=== PATIENT | female | born 1975 | race Caucasian/White ===

== ENCOUNTER 2017-11-30 16:09 | Inpatient (IN) ==
[2017-11-30 17:09] LABS: Basophils # 0.1 K/mcL (0.0-0.2); Basophils % 0.5 %; Eosinophils # 0.4 K/mcL (0.0-0.6); Eosinophils % 4.2 %; Hematocrit 31.5 % (35.3-44.9); Hemoglobin 8.9 g/dL (11.5-15.4); Immature Granulocytes % 0.7 % (0-4); Lymphocytes # 2.2 K/mcL (0.6-4.6); Mean Corpuscular HGB Conc 28.3 g/dL (31.6-35.5); Mean Corpuscular Volume 74.3 fL (83.0-100.0); Mean Platelet Volume 8.4 fL (9.4-12.4); Monocytes # 0.3 K/mcL (0.0-1.3); Monocytes % 3.1 %; Neutrophils # 6.6 K/mcL (1.6-8.9); Platelet Count 330 K/mcL (140-400); Red Blood Count 4.24 M/mcL (3.82-4.97); Red Cell Distribution Width 20.3 % (11.5-14.5); Segmented Neutrophils % 68.5 %
[2017-11-30 17:24] LABS: Anisocytosis 2+ (Not Present); Hypochromasia Present (Not Present); Large Platelets Present (Not Present); Microcytosis Present (Not Present); Platelet Estimate Normal (Normal)
[2017-11-30 17:31] LABS: BUN/Creatinine Ratio 12 (6-26); Blood Urea Nitrogen 8 mg/dL (6-20); Calcium 9.7 mg/dL (8.6-10.3); Carbon Dioxide 26 mEq/L (23-29); Chloride 103 mEq/L (98-107); Glucose 205 mg/dL (70-105); Osmolality,Calculated 294 (280-300); Potassium 3.9 mEq/L (3.5-5.1); Sodium 140 mEq/L (136-145); eGFR For Non-African Americans > 60 (> 60)
[2017-11-30 17:32] LABS: Troponin I < 0.03 ng/mL (< 0.04)
--- NOTE | 2017-11-30 17:40 | Emergency Department Note ---
Disposition Clinical Impression: Hypoxia, Elevated lactic acid level Anemia Qualifiers: Anemia type: unspecified type Qualified Code(s): D64.9 - Anemia, unspecified Disposition: Still a Patient Condition: Fair Referrals: Merlyn Pendleton MD [Primary Care Provider] - Forms: ED Satisfaction Letter Time of Disposition: 19:30 Recheck wound or abnormal lab - General Chief Complaint: ED Recheck/Abnormal Lab/Rx Stated Complaint: Low hemoglobin,Low O2 Time Seen by Provider: 11/30/17 17:20 Source: patient Mode of arrival: ambulatory Limitations: no limitations Nursing Notes Reviewed: Yes Vital Signs Reviewed: Yes - History of Present Illness HPI Narrative: Patient is a 42-year-old female with past medical history of leukemia, previous CVA, sleep apnea and uses BiPAP at night. Chest has a history of chronic anemia. She presents today due to fatigue, chest pain, concern for low hemoglobin level. Patient is chronic cognitive delay due to previous stroke. Her mother is present and states that the patient has been confused over the past couple days, she has checked her pulse ox at home and she has periodic episodes of desaturation into the 70s and 80s. She does not wear any oxygen home. She does not have any diagnosis of COPD. She does have a history of asthma but only uses albuterol inhaler as needed. The patient herself admits to chest discomfort that in the center of her chest, described as sharp, unable to rate the pain by numbers at this time, no radiation to jaw or arms, no worsening with exertion. She has also had some occasional vaginal bleeding but mother states that her flow has decreased over the past few days. Patient is also being treated for UTI with keflex by Dr. Bravo. - Related Data Allergies Allergy/AdvReac Type Severity Reaction Status Date / Time Sulfa (Sulfonamide AdvReac Mild Nausea Verified 11/30/17 16:30 Antibiotics) All systems ED: reviewed and negative except as stated. Constitutional: Denies: fever Cardiovascular: Reports: chest pain. Denies: palpitations Respiratory: Reports: dyspnea. Denies: cough Gastrointestinal: Denies: abdominal pain, nausea, vomiting, diarrhea Genitourinary: Denies: urgency, dysuria Past Medical History - Past Medical History Attestation: Yes The following information was validated with the patient. Source: patient Physical Exam - General Limitations: no limitations General appearance: alert, in no apparent distress - Head Head exam: atraumatic, normocephalic, normal inspection - Eye Eye exam: Present: normal appearance, PERRL, EOMI - ENT ENT exam: normal exam, normal oropharynx, mucous membranes moist - Neck Neck exam: Present: normal inspection, full ROM, trachea midline - Chest Chest inspection: Present: normal inspection, symmetric chest wall rise - Respiratory Respiratory exam: Present: normal lung sounds bilaterally - Cardiovascular Cardiovascular exam: Present: regular rate, normal rhythm, normal heart sounds - Abdominal Exam Abdominal exam: Present: soft, Non-Tender. Absent: tenderness, distention, guarding, rebound, rigidity - Extremities Exam Extremities exam: Present: normal inspection, full ROM. Absent: tenderness, pedal edema - Neurological Exam Neurological exam: Present: alert, oriented X3, other (chronic cognitive delay) - Psychiatric Psychiatric exam: Present: normal mood, flat affect - Skin Skin exam: Present: warm, dry, intact, normal color Course Course Narrative: Patient is having desats to upper 80s on room air. She does not appear to be short of breath. She is complaining of chest discomfort. Currently concern for possible PE versus pneumonia. Hemoglobin was obtained and 8.1. No concern for any transfusion at this time. No active bleeding. She does have small amount of vaginal bleeding but no blood in stool. We will also obtain troponin. EKG shows normal sinus rhythm with no acute ST changes. We will perform CTA of the chest to assess for PE versus pneumonia. We will also recheck UA due to UTI. 19:00 CBC shows hemoglobin of 8.1. BMP shows no major electrolyte abnormality. Troponin negative. EKG shows no acute ST changes. Pending CTA and UA, will sign out to night team for further care and dispo. Recommend admission due to hypoxia. Vital Signs Temperature 98 F 11/30/17 16:11 Pulse Rate 92 11/30/17 16:11 Respiratory Rate 20 11/30/17 16:11 Blood Pressure 123/77 11/30/17 16:11 O2 Sat by Pulse Oximetry 11/30/17 16:11 Temperature 98 F 11/30/17 16:11 Pulse Rate 92 11/30/17 16:11 Respiratory Rate 20 11/30/17 16:11 Blood Pressure 123/77 11/30/17 16:11 O2 Sat by Pulse Oximetry 11/30/17 16:11 Oxygen Delivery Oxygen Delivery Room Air Recheck wound or abnormal lab - MDM Narrative Medical decision making narrative: Patient is having desats to upper 80s on room air. She does not appear to be short of breath. She is complaining of chest discomfort. Currently concern for possible PE versus pneumonia. Hemoglobin was obtained and 8.1. No concern for any transfusion at this time. No active bleeding. She does have small amount of vaginal bleeding but no blood in stool. We will also obtain troponin. EKG shows normal sinus rhythm with no acute ST changes. We will perform CTA of the chest to assess for PE versus pneumonia. We will also recheck UA due to UTI. 19:00 CBC shows hemoglobin of 8.1. BMP shows no major electrolyte abnormality. Troponin negative. EKG shows no acute ST changes. Pending CTA and UA, will sign out to night team for further care and dispo. Recommend admission due to hypoxia. - Medical Records Medical records reviewed: Yes I reviewed the patient's medical records. - Lab Data Lab results reviewed: Yes I reviewed the patient's lab results. Result diagrams: 11/30/17 16:57 11/30/17 16:57 Lab Results 11/30/17 11/30/17 11/30/17 Range/Units 16:57 16:57 16:57 WBC 9.7 (4.3-11.1) K/mcL RBC 4.24 (3.82-4.97) M/mcL Hgb 8.9 L (11.5-15.4) g/dL Hct 31.5 L (35.3-44.9) % MCV 74.3 L (83.0-100.0) fL MCH 21.0 L (28.0-33.3) pg MCHC 28.3 L (31.6-35.5) g/dL RDW 20.3 H (11.5-14.5) % Plt Count 330 (140-400) K/mcL MPV 8.4 L (9.4-12.4) fL Immature Gran % 0.7 (0-4) % Seg Neutrophils % 68.5 % Lymphocytes % 23.0 % Monocytes % 3.1 % Eosinophils % 4.2 % Basophils % 0.5 % Neutrophils # 6.6 (1.6-8.9) K/mcL Lymphocytes # 2.2 (0.6-4.6) K/mcL Monocytes # 0.3 (0.0-1.3) K/mcL Eosinophils # 0.4 (0.0-0.6) K/mcL Basophils # 0.1 (0.0-0.2) K/mcL Platelet Estimate Normal (Normal) Large Platelets Present A (Not Present) Hypochromasia Present A (Not Present) Anisocytosis 2+ A (Not Present) Microcytosis Present A (Not Present) Sodium 140 (136-145) mEq/L Potassium 3.9 (3.5-5.1) mEq/L Chloride 103 (98-107) mEq/L Carbon Dioxide 26 (23-29) mEq/L BUN 8 (6-20) mg/dL Creatinine 0.68 (0.60-1.20) mg/dL Est GFR ( Amer) > 60 (> 60) Est GFR (Non-Af Amer) > 60 (> 60) BUN/Creatinine Ratio 12 (6-26) Glucose 205 H (70-105) mg/dL Calculated Osmolality 294 (280-300) Lactic Acid 3.1 H (0.5-2.2) mmol/L Calcium 9.7 (8.6-10.3) mg/dL Troponin I < 0.03 (< 0.04) ng/mL B-Natriuretic Peptide (Less than 100) pg/mL Blood Type Antibody Screen 11/30/17 11/30/17 Range/Units 16:57 16:57 WBC (4.3-11.1) K/mcL RBC (3.82-4.97) M/mcL Hgb (11.5-15.4) g/dL Hct (35.3-44.9) % MCV (83.0-100.0) fL MCH (28.0-33.3) pg MCHC (31.6-35.5) g/dL RDW (11.5-14.5) % Plt Count (140-400) K/mcL MPV (9.4-12.4) fL Immature Gran % (0-4) % Seg Neutrophils % % Lymphocytes % % Monocytes % % Eosinophils % % Basophils % % Neutrophils # (1.6-8.9) K/mcL Lymphocytes # (0.6-4.6) K/mcL Monocytes # (0.0-1.3) K/mcL Eosinophils # (0.0-0.6) K/mcL Basophils # (0.0-0.2) K/mcL Platelet Estimate (Normal) Large Platelets (Not Present) Hypochromasia (Not Present) Anisocytosis (Not Present) Microcytosis (Not Present) Sodium (136-145) mEq/L Potassium (3.5-5.1) mEq/L Chloride (98-107) mEq/L Carbon Dioxide (23-29) mEq/L BUN (6-20) mg/dL Creatinine (0.60-1.20) mg/dL Est GFR ( Amer) (> 60) Est GFR (Non-Af Amer) (> 60) BUN/Creatinine Ratio (6-26) Glucose (70-105) mg/dL Calculated Osmolality (280-300) Lactic Acid (0.5-2.2) mmol/L Calcium (8.6-10.3) mg/dL Troponin I (< 0.04) ng/mL B-Natriuretic Peptide 11 (Less than 100) pg/mL Blood Type A NEGATIVE Antibody Screen NEGATIVE - Radiology Data Radiology results reviewed: Yes I reviewed the patient's radiology results. Chest X-Ray 11/30/17 17:49 IMPRESSION: Pulmonary vascular congestion D/ / Norman Enrique MD / Norman Enrique MD Interpreting Provider: Norman Enrique MD Chest CTA 11/30/17 18:00 IMPRESSION: No evidence of pulmonary embolism or acute pulmonary abnormality. Incidental fatty infiltration of the liver. D/ / Odalis Lemus MD / Odalis Lemus MD Interpreting Provider: Odalis Lemus MD - EKG Data EKG attestation: Yes I reviewed and interpreted this EKG. EKG results narrative: 11/30/2017 at 17:44. Normal sinus rhythm. Rate 92. MS 149. QRS 90. QTC 404. Normal axis. No acute ST elevation or depression. T-wave inversion in lead 3, V2. S.B.A.R. - S.B.A.R. Situation: Demographics, MOA Background: Presenting Complaint, Relevant PMH, Meds, & Allergies Assessment: Vital Signs, Course and respsone to treatment, Exam Concerns, Patient/Family Expectation, Pertinant Lab Results Recommendation: Barrier(s) to disposition, Recommendation based on pending studies, treatments, or consults S.B.A.R. Report Given to: Dr. Velazquez, Dr. Gayle
--- NOTE | 2017-11-30 17:54 | Emergency Department Note ---
Disposition Clinical Impression: Hypoxia, Elevated lactic acid level Anemia Qualifiers: Anemia type: unspecified type Qualified Code(s): D64.9 - Anemia, unspecified Disposition: Admitted As Inpatient Condition: Good General Adult HPI - General Chief complaint: ED Recheck/Abnormal Lab/Rx Stated complaint: Low hemoglobin,Low O2 Time Seen by Provider: 11/30/17 17:20 Source: patient Mode of arrival: ambulatory Limitations: no limitations - History of Present Illness Pain Scale: 0 - Related Data Home Medications Medication Instructions Recorded Confirmed Aspirin Enteric Coated [Aspirin EC] 81 mg PO DAILY 11/30/17 11/30/17 Buspirone HCl [Buspar] 15 mg PO TID PRN 11/30/17 11/30/17 Cetirizine HCl 10 mg PO DAILY 11/30/17 11/30/17 Cholecalciferol (Vitamin D3) 2,000 unit PO DAILY 11/30/17 11/30/17 [Vitamin D3] Clobazam [Onfi] 20 mg PO BID 11/30/17 11/30/17 Docusate [Colace] 100 mg PO BID 11/30/17 11/30/17 Dulaglutide [Trulicity] 0.75 mg SQ QWEEK 11/30/17 11/30/17 Ferrous Sulfate 325 mg PO BID 11/30/17 11/30/17 Folic Acid 1 mg PO DAILY 11/30/17 11/30/17 Ibuprofen 800 mg PO Q8H PRN 11/30/17 11/30/17 Levothyroxine Sodium 88 mcg PO DAILY 11/30/17 11/30/17 Metformin HCl [Fortamet] 1,000 mg PO BID 11/30/17 11/30/17 Nateglinide [Starlix] 120 mg PO TIDWM 11/30/17 11/30/17 Nitrofurantoin [Macrodantin] 50 mg PO DAILY 11/30/17 11/30/17 Omeprazole [PriLOSEC] 40 mg PO BID 11/30/17 11/30/17 Perampanel [Fycompa] 4 mg PO BID 11/30/17 11/30/17 Potassium Chloride 20 meq PO BID 11/30/17 11/30/17 Rufinamide [Banzel] 800 mg PO BID 11/30/17 11/30/17 Sennosides [Senna] 8.6 mg PO BID 11/30/17 11/30/17 Topiramate [Topamax] 300 mg PO QAM 11/30/17 11/30/17 Topiramate [Topamax] 400 mg PO QPM 11/30/17 11/30/17 hydroCHLOROthiazide 12.5 mg PO DAILY PRN 11/30/17 11/30/17 [Hydrochlorothiazide] lamoTRIgine [Lamictal] 200 mg PO QAM 11/30/17 11/30/17 lamoTRIgine [Lamictal] 300 mg PO QPM 11/30/17 11/30/17 Albuterol Neb [AccuNeb] 1.25 mg IH Q4H PRN 12/03/17 12/03/17 Albuterol Sulfate [Albuterol 2 puff IH Q4H PRN 12/03/17 12/03/17 Inhaler] Previous Rx's Medication Instructions Recorded levoFLOXacin [Levaquin] 750 mg PO DAILY #1 tablet 12/04/17 Allergies Allergy/AdvReac Type Severity Reaction Status Date / Time Sulfa (Sulfonamide AdvReac Mild Nausea Verified 11/30/17 20:03 Antibiotics) Physical Exam - General Limitations: no limitations Course Vital Signs Temperature 98 F 11/30/17 16:11 Pulse Rate 92 11/30/17 16:11 Respiratory Rate 20 11/30/17 16:11 Blood Pressure 123/77 11/30/17 16:11 O2 Sat by Pulse Oximetry 92 11/30/17 16:11 Temperature 98.7 F 12/04/17 11:58 Pulse Rate 87 12/04/17 11:58 Respiratory Rate 20 12/04/17 11:58 Blood Pressure 107/72 12/04/17 11:58 O2 Sat by Pulse Oximetry 93 12/04/17 11:58 Oxygen Delivery Oxygen Delivery Room Air Medical Decision Making - Lab Data Result diagrams: 12/03/17 04:30 12/03/17 04:30 Lab Results 11/30/17 11/30/17 11/30/17 Range/Units 16:57 16:57 16:57 WBC 9.7 (4.3-11.1) K/mcL RBC 4.24 (3.82-4.97) M/mcL Hgb 8.9 L (11.5-15.4) g/dL Hct 31.5 L (35.3-44.9) % MCV 74.3 L (83.0-100.0) fL MCH 21.0 L (28.0-33.3) pg MCHC 28.3 L (31.6-35.5) g/dL RDW 20.3 H (11.5-14.5) % Plt Count 330 (140-400) K/mcL MPV 8.4 L (9.4-12.4) fL Immature Gran % 0.7 (0-4) % Seg Neutrophils % 68.5 % Lymphocytes % 23.0 % Monocytes % 3.1 % Eosinophils % 4.2 % Basophils % 0.5 % Neutrophils # 6.6 (1.6-8.9) K/mcL Lymphocytes # 2.2 (0.6-4.6) K/mcL Monocytes # 0.3 (0.0-1.3) K/mcL Eosinophils # 0.4 (0.0-0.6) K/mcL Basophils # 0.1 (0.0-0.2) K/mcL Nucleated RBCs/100 WBC (0) /100 WBC Platelet Estimate Normal (Normal) Large Platelets Present A (Not Present) Polychromasia (Not Present) Hypochromasia Present A (Not Present) Anisocytosis 2+ A (Not Present) Microcytosis Present A (Not Present) Macrocytosis (Not Present) Tear Drop Cells (Not Present) Stomatocytes (Not Present) PT (9.4-12.1) Seconds INR APTT (26.0-36.0) Seconds Sodium 140 (136-145) mEq/L Potassium 3.9 (3.5-5.1) mEq/L Chloride 103 (98-107) mEq/L Carbon Dioxide 26 (23-29) mEq/L BUN 8 (6-20) mg/dL Creatinine 0.68 (0.60-1.20) mg/dL Est GFR ( Amer) > 60 (> 60) Est GFR (Non-Af Amer) > 60 (> 60) BUN/Creatinine Ratio 12 (6-26) Glucose 205 H (70-105) mg/dL POC Glucose (70-99) mg/dL Est Mean Plasma Glucose mg/dl Hemoglobin A1c ( - 5.6) % Calculated Osmolality 294 (280-300) Lactic Acid 3.1 H (0.5-2.2) mmol/L Calcium 9.7 (8.6-10.3) mg/dL Iron 14 L (50-170) mcg/dL % Saturation 3 L (15-50) % Transferrin 393 H (203-362) mg/dL Ferritin (10-120) ng/mL Total Bilirubin (0.3-1.0) mg/dL AST (13-39) Units/L ALT (7-52) Units/L Alkaline Phosphatase (34-104) Units/L Troponin I < 0.03 (< 0.04) ng/mL B-Natriuretic Peptide (Less than 100) pg/mL Serum Total Protein (6.4-8.9) g/dL Albumin (3.5-5.7) g/dL Globulin (2.4-3.5) g/dL Albumin/Globulin Ratio (1.1-2.2) Triglycerides (< 150) mg/dL Cholesterol (< 200) mg/dL LDL Cholesterol, Calc (0-99) mg/dL VLDL Cholesterol, Calc (< 31) mg/dL HDL Cholesterol (40-59) mg/dL Cholesterol/HDL Ratio (0-4.9) Amylase (29-103) Units/L Lipase (11-82) Units/L Urine Color (Yellow) Urine Clarity (Clear) Urine pH (5.0-8.0) pH Units Ur Specific [place] (1.010-1.025) Urine Protein (Neg-Trace) mg/dL Urine Glucose (UA) (Normal) mg/dL Urine Ketones (Negative) mg/dL Urine Blood (Negative) Urine Nitrite (Negative) Urine Bilirubin (Negative) Urine Urobilinogen (Normal) mg/dL Ur Leukocyte Esterase (Negative) Ur Culture Indicated? (NO) Stool Occult Blood (Negative) Blood Type Antibody Screen 11/30/17 11/30/17 11/30/17 Range/Units 16:57 16:57 20:00 WBC (4.3-11.1) K/mcL RBC (3.82-4.97) M/mcL Hgb (11.5-15.4) g/dL Hct (35.3-44.9) % MCV (83.0-100.0) fL MCH (28.0-33.3) pg MCHC (31.6-35.5) g/dL RDW (11.5-14.5) % Plt Count (140-400) K/mcL MPV (9.4-12.4) fL Immature Gran % (0-4) % Seg Neutrophils % % Lymphocytes % % Monocytes % % Eosinophils % % Basophils % % Neutrophils # (1.6-8.9) K/mcL Lymphocytes # (0.6-4.6) K/mcL Monocytes # (0.0-1.3) K/mcL Eosinophils # (0.0-0.6) K/mcL Basophils # (0.0-0.2) K/mcL Nucleated RBCs/100 WBC (0) /100 WBC Platelet Estimate (Normal) Large Platelets (Not Present) Polychromasia (Not Present) Hypochromasia (Not Present) Anisocytosis (Not Present) Microcytosis (Not Present) Macrocytosis (Not Present) Tear Drop Cells (Not Present) Stomatocytes (Not Present) PT (9.4-12.1) Seconds INR APTT (26.0-36.0) Seconds Sodium (136-145) mEq/L Potassium (3.5-5.1) mEq/L Chloride (98-107) mEq/L Carbon Dioxide (23-29) mEq/L BUN (6-20) mg/dL Creatinine (0.60-1.20) mg/dL Est GFR ( Amer) (> 60) Est GFR (Non-Af Amer) (> 60) BUN/Creatinine Ratio (6-26) Glucose (70-105) mg/dL POC Glucose (70-99) mg/dL Est Mean Plasma Glucose mg/dl Hemoglobin A1c ( - 5.6) % Calculated Osmolality (280-300) Lactic Acid (0.5-2.2) mmol/L Calcium (8.6-10.3) mg/dL Iron (50-170) mcg/dL % Saturation (15-50) % Transferrin (203-362) mg/dL Ferritin (10-120) ng/mL Total Bilirubin (0.3-1.0) mg/dL AST (13-39) Units/L ALT (7-52) Units/L Alkaline Phosphatase (34-104) Units/L Troponin I (< 0.04) ng/mL B-Natriuretic Peptide 11 (Less than 100) pg/mL Serum Total Protein (6.4-8.9) g/dL Albumin (3.5-5.7) g/dL Globulin (2.4-3.5) g/dL Albumin/Globulin Ratio (1.1-2.2) Triglycerides (< 150) mg/dL Cholesterol (< 200) mg/dL LDL Cholesterol, Calc (0-99) mg/dL VLDL Cholesterol, Calc (< 31) mg/dL HDL Cholesterol (40-59) mg/dL Cholesterol/HDL Ratio (0-4.9) Amylase (29-103) Units/L Lipase (11-82) Units/L Urine Color Yellow (Yellow) Urine Clarity Clear (Clear) Urine pH 6.5 (5.0-8.0) pH Units Ur Specific [place] 1.030 H (1.010-1.025) Urine Protein Negative (Neg-Trace) mg/dL Urine Glucose (UA) Normal (Normal) mg/dL Urine Ketones Negative (Negative) mg/dL Urine Blood Negative (Negative) Urine Nitrite Negative (Negative) Urine Bilirubin Negative (Negative) Urine Urobilinogen Normal (Normal) mg/dL Ur Leukocyte Esterase Negative (Negative) Ur Culture Indicated? NO (NO) Stool Occult Blood (Negative) Blood Type A NEGATIVE Antibody Screen NEGATIVE 11/30/17 12/01/17 12/01/17 Range/Units 21:01 01:25 01:25 WBC (4.3-11.1) K/mcL RBC (3.82-4.97) M/mcL Hgb (11.5-15.4) g/dL Hct (35.3-44.9) % MCV (83.0-100.0) fL MCH (28.0-33.3) pg MCHC (31.6-35.5) g/dL RDW (11.5-14.5) % Plt Count (140-400) K/mcL MPV (9.4-12.4) fL Immature Gran % (0-4) % Seg Neutrophils % % Lymphocytes % % Monocytes % % Eosinophils % % Basophils % % Neutrophils # (1.6-8.9) K/mcL Lymphocytes # (0.6-4.6) K/mcL Monocytes # (0.0-1.3) K/mcL Eosinophils # (0.0-0.6) K/mcL Basophils # (0.0-0.2) K/mcL Nucleated RBCs/100 WBC (0) /100 WBC Platelet Estimate (Normal) Large Platelets (Not Present) Polychromasia (Not Present) Hypochromasia (Not Present) Anisocytosis (Not Present) Microcytosis (Not Present) Macrocytosis (Not Present) Tear Drop Cells (Not Present) Stomatocytes (Not Present) PT 11.1 (9.4-12.1) Seconds INR 1.0 APTT 29.7 (26.0-36.0) Seconds Sodium (136-145) mEq/L Potassium (3.5-5.1) mEq/L Chloride (98-107) mEq/L Carbon Dioxide (23-29) mEq/L BUN (6-20) mg/dL Creatinine (0.60-1.20) mg/dL Est GFR ( Amer) (> 60) Est GFR (Non-Af Amer) (> 60) BUN/Creatinine Ratio (6-26) Glucose (70-105) mg/dL POC Glucose (70-99) mg/dL Est Mean Plasma Glucose 197 mg/dl Hemoglobin A1c 8.5 H ( - 5.6) % Calculated Osmolality (280-300) Lactic Acid 2.8 H (0.5-2.2) mmol/L Calcium (8.6-10.3) mg/dL Iron (50-170) mcg/dL % Saturation (15-50) % Transferrin (203-362) mg/dL Ferritin (10-120) ng/mL Total Bilirubin (0.3-1.0) mg/dL AST (13-39) Units/L ALT (7-52) Units/L Alkaline Phosphatase (34-104) Units/L Troponin I (< 0.04) ng/mL B-Natriuretic Peptide (Less than 100) pg/mL Serum Total Protein (6.4-8.9) g/dL Albumin (3.5-5.7) g/dL Globulin (2.4-3.5) g/dL Albumin/Globulin Ratio (1.1-2.2) Triglycerides (< 150) mg/dL Cholesterol (< 200) mg/dL LDL Cholesterol, Calc (0-99) mg/dL VLDL Cholesterol, Calc (< 31) mg/dL HDL Cholesterol (40-59) mg/dL Cholesterol/HDL Ratio (0-4.9) Amylase (29-103) Units/L Lipase (11-82) Units/L Urine Color (Yellow) Urine Clarity (Clear) Urine pH (5.0-8.0) pH Units Ur Specific [place] (1.010-1.025) Urine Protein (Neg-Trace) mg/dL Urine Glucose (UA) (Normal) mg/dL Urine Ketones (Negative) mg/dL Urine Blood (Negative) Urine Nitrite (Negative) Urine Bilirubin (Negative) Urine Urobilinogen (Normal) mg/dL Ur Leukocyte Esterase (Negative) Ur Culture Indicated? (NO) Stool Occult Blood (Negative) Blood Type Antibody Screen 12/01/17 12/01/17 12/01/17 Range/Units 01:25 01:25 01:25 WBC 9.2 (4.3-11.1) K/mcL RBC 3.92 (3.82-4.97) M/mcL Hgb 8.3 L (11.5-15.4) g/dL Hct 29.6 L (35.3-44.9) % MCV 75.5 L (83.0-100.0) fL MCH 21.2 L (28.0-33.3) pg MCHC 28.0 L (31.6-35.5) g/dL RDW 20.0 H (11.5-14.5) % Plt Count 305 (140-400) K/mcL MPV 8.3 L (9.4-12.4) fL Immature Gran % 1.1 (0-4) % Seg Neutrophils % 67.3 % Lymphocytes % 24.0 % Monocytes % 3.3 % Eosinophils % 3.9 % Basophils % 0.4 % Neutrophils # 6.2 (1.6-8.9) K/mcL Lymphocytes # 2.2 (0.6-4.6) K/mcL Monocytes # 0.3 (0.0-1.3) K/mcL Eosinophils # 0.4 (0.0-0.6) K/mcL Basophils # 0.0 (0.0-0.2) K/mcL Nucleated RBCs/100 WBC 0.2 H (0) /100 WBC Platelet Estimate Normal (Normal) Large Platelets Present A (Not Present) Polychromasia 1+ A (Not Present) Hypochromasia Present A (Not Present) Anisocytosis 2+ A (Not Present) Microcytosis Present A (Not Present) Macrocytosis Present A (Not Present) Tear Drop Cells 1+ A (Not Present) Stomatocytes 2+ A (Not Present) PT (9.4-12.1) Seconds INR APTT (26.0-36.0) Seconds Sodium 138 (136-145) mEq/L Potassium 3.8 (3.5-5.1) mEq/L Chloride 107 (98-107) mEq/L Carbon Dioxide 26 (23-29) mEq/L BUN 8 (6-20) mg/dL Creatinine 0.66 (0.60-1.20) mg/dL Est GFR ( Amer) > 60 (> 60) Est GFR (Non-Af Amer) > 60 (> 60) BUN/Creatinine Ratio 12 (6-26) Glucose 326 H (70-105) mg/dL POC Glucose (70-99) mg/dL Est Mean Plasma Glucose mg/dl Hemoglobin A1c ( - 5.6) % Calculated Osmolality 297 (280-300) Lactic Acid 2.3 H (0.5-2.2) mmol/L Calcium 8.6 (8.6-10.3) mg/dL Iron (50-170) mcg/dL % Saturation (15-50) % Transferrin (203-362) mg/dL Ferritin (10-120) ng/mL Total Bilirubin 0.3 (0.3-1.0) mg/dL AST 9 L (13-39) Units/L ALT 10 (7-52) Units/L Alkaline Phosphatase 79 (34-104) Units/L Troponin I (< 0.04) ng/mL B-Natriuretic Peptide (Less than 100) pg/mL Serum Total Protein 7.0 (6.4-8.9) g/dL Albumin 3.6 (3.5-5.7) g/dL Globulin 3.4 (2.4-3.5) g/dL Albumin/Globulin Ratio 1.1 (1.1-2.2) Triglycerides 398 H (< 150) mg/dL Cholesterol 129 (< 200) mg/dL LDL Cholesterol, Calc 31 (0-99) mg/dL VLDL Cholesterol, Calc 80 H (< 31) mg/dL HDL Cholesterol 18 L (40-59) mg/dL Cholesterol/HDL Ratio 7.2 H (0-4.9) Amylase (29-103) Units/L Lipase (11-82) Units/L Urine Color (Yellow) Urine Clarity (Clear) Urine pH (5.0-8.0) pH Units Ur Specific [place] (1.010-1.025) Urine Protein (Neg-Trace) mg/dL Urine Glucose (UA) (Normal) mg/dL Urine Ketones (Negative) mg/dL Urine Blood (Negative) Urine Nitrite (Negative) Urine Bilirubin (Negative) Urine Urobilinogen (Normal) mg/dL Ur Leukocyte Esterase (Negative) Ur Culture Indicated? (NO) Stool Occult Blood (Negative) Blood Type Antibody Screen 12/01/17 12/01/17 12/01/17 Range/Units 05:57 06:41 08:03 WBC (4.3-11.1) K/mcL RBC (3.82-4.97) M/mcL Hgb (11.5-15.4) g/dL Hct (35.3-44.9) % MCV (83.0-100.0) fL MCH (28.0-33.3) pg MCHC (31.6-35.5) g/dL RDW (11.5-14.5) % Plt Count (140-400) K/mcL MPV (9.4-12.4) fL Immature Gran % (0-4) % Seg Neutrophils % % Lymphocytes % % Monocytes % % Eosinophils % % Basophils % % Neutrophils # (1.6-8.9) K/mcL Lymphocytes # (0.6-4.6) K/mcL Monocytes # (0.0-1.3) K/mcL Eosinophils # (0.0-0.6) K/mcL Basophils # (0.0-0.2) K/mcL Nucleated RBCs/100 WBC (0) /100 WBC Platelet Estimate (Normal) Large Platelets (Not Present) Polychromasia (Not Present) Hypochromasia (Not Present) Anisocytosis (Not Present) Microcytosis (Not Present) Macrocytosis (Not Present) Tear Drop Cells (Not Present) Stomatocytes (Not Present) PT (9.4-12.1) Seconds INR APTT (26.0-36.0) Seconds Sodium (136-145) mEq/L Potassium (3.5-5.1) mEq/L Chloride (98-107) mEq/L Carbon Dioxide (23-29) mEq/L BUN (6-20) mg/dL Creatinine (0.60-1.20) mg/dL Est GFR ( Amer) (> 60) Est GFR (Non-Af Amer) (> 60) BUN/Creatinine Ratio (6-26) Glucose (70-105) mg/dL POC Glucose 250 H (70-99) mg/dL Est Mean Plasma Glucose mg/dl Hemoglobin A1c ( - 5.6) % Calculated Osmolality (280-300) Lactic Acid 1.7 (0.5-2.2) mmol/L Calcium (8.6-10.3) mg/dL Iron (50-170) mcg/dL % Saturation (15-50) % Transferrin (203-362) mg/dL Ferritin (10-120) ng/mL Total Bilirubin (0.3-1.0) mg/dL AST (13-39) Units/L ALT (7-52) Units/L Alkaline Phosphatase (34-104) Units/L Troponin I < 0.03 (< 0.04) ng/mL B-Natriuretic Peptide (Less than 100) pg/mL Serum Total Protein (6.4-8.9) g/dL Albumin (3.5-5.7) g/dL Globulin (2.4-3.5) g/dL Albumin/Globulin Ratio (1.1-2.2) Triglycerides (< 150) mg/dL Cholesterol (< 200) mg/dL LDL Cholesterol, Calc (0-99) mg/dL VLDL Cholesterol, Calc (< 31) mg/dL HDL Cholesterol (40-59) mg/dL Cholesterol/HDL Ratio (0-4.9) Amylase 14 L (29-103) Units/L Lipase 18 (11-82) Units/L Urine Color (Yellow) Urine Clarity (Clear) Urine pH (5.0-8.0) pH Units Ur Specific [place] (1.010-1.025) Urine Protein (Neg-Trace) mg/dL Urine Glucose (UA) (Normal) mg/dL Urine Ketones (Negative) mg/dL Urine Blood (Negative) Urine Nitrite (Negative) Urine Bilirubin (Negative) Urine Urobilinogen (Normal) mg/dL Ur Leukocyte Esterase (Negative) Ur Culture Indicated? (NO) Stool Occult Blood (Negative) Blood Type Antibody Screen 12/01/17 12/01/17 12/01/17 Range/Units 08:03 11:43 16:48 WBC (4.3-11.1) K/mcL RBC (3.82-4.97) M/mcL Hgb 8.6 L (11.5-15.4) g/dL Hct 31.0 L (35.3-44.9) % MCV (83.0-100.0) fL MCH (28.0-33.3) pg MCHC (31.6-35.5) g/dL RDW (11.5-14.5) % Plt Count (140-400) K/mcL MPV (9.4-12.4) fL Immature Gran % (0-4) % Seg Neutrophils % % Lymphocytes % % Monocytes % % Eosinophils % % Basophils % % Neutrophils # (1.6-8.9) K/mcL Lymphocytes # (0.6-4.6) K/mcL Monocytes # (0.0-1.3) K/mcL Eosinophils # (0.0-0.6) K/mcL Basophils # (0.0-0.2) K/mcL Nucleated RBCs/100 WBC (0) /100 WBC Platelet Estimate (Normal) Large Platelets (Not Present) Polychromasia (Not Present) Hypochromasia (Not Present) Anisocytosis (Not Present) Microcytosis (Not Present) Macrocytosis (Not Present) Tear Drop Cells (Not Present) Stomatocytes (Not Present) PT (9.4-12.1) Seconds INR APTT (26.0-36.0) Seconds Sodium (136-145) mEq/L Potassium (3.5-5.1) mEq/L Chloride (98-107) mEq/L Carbon Dioxide (23-29) mEq/L BUN (6-20) mg/dL Creatinine (0.60-1.20) mg/dL Est GFR ( Amer) (> 60) Est GFR (Non-Af Amer) (> 60) BUN/Creatinine Ratio (6-26) Glucose (70-105) mg/dL POC Glucose 290 H 209 H (70-99) mg/dL Est Mean Plasma Glucose mg/dl Hemoglobin A1c ( - 5.6) % Calculated Osmolality (280-300) Lactic Acid (0.5-2.2) mmol/L Calcium (8.6-10.3) mg/dL Iron (50-170) mcg/dL % Saturation (15-50) % Transferrin (203-362) mg/dL Ferritin (10-120) ng/mL Total Bilirubin (0.3-1.0) mg/dL AST (13-39) Units/L ALT (7-52) Units/L Alkaline Phosphatase (34-104) Units/L Troponin I (< 0.04) ng/mL B-Natriuretic Peptide (Less than 100) pg/mL Serum Total Protein (6.4-8.9) g/dL Albumin (3.5-5.7) g/dL Globulin (2.4-3.5) g/dL Albumin/Globulin Ratio (1.1-2.2) Triglycerides (< 150) mg/dL Cholesterol (< 200) mg/dL LDL Cholesterol, Calc (0-99) mg/dL VLDL Cholesterol, Calc (< 31) mg/dL HDL Cholesterol (40-59) mg/dL Cholesterol/HDL Ratio (0-4.9) Amylase (29-103) Units/L Lipase (11-82) Units/L Urine Color (Yellow) Urine Clarity (Clear) Urine pH (5.0-8.0) pH Units Ur Specific [place] (1.010-1.025) Urine Protein (Neg-Trace) mg/dL Urine Glucose (UA) (Normal) mg/dL Urine Ketones (Negative) mg/dL Urine Blood (Negative) Urine Nitrite (Negative) Urine Bilirubin (Negative) Urine Urobilinogen (Normal) mg/dL Ur Leukocyte Esterase (Negative) Ur Culture Indicated? (NO) Stool Occult Blood (Negative) Blood Type Antibody Screen 12/01/17 12/01/17 12/02/17 Range/Units 20:36 22:28 06:28 WBC 7.2 (4.3-11.1) K/mcL RBC 3.82 (3.82-4.97) M/mcL Hgb 8.1 L (11.5-15.4) g/dL Hct 29.2 L (35.3-44.9) % MCV 76.4 L (83.0-100.0) fL MCH 21.2 L (28.0-33.3) pg MCHC 27.7 L (31.6-35.5) g/dL RDW 20.1 H (11.5-14.5) % Plt Count 314 (140-400) K/mcL MPV 8.3 L (9.4-12.4) fL Immature Gran % 2.5 (0-4) % Seg Neutrophils % 61.5 % Lymphocytes % 27.4 % Monocytes % 3.3 % Eosinophils % 4.7 % Basophils % 0.6 % Neutrophils # 4.4 (1.6-8.9) K/mcL Lymphocytes # 2.0 (0.6-4.6) K/mcL Monocytes # 0.2 (0.0-1.3) K/mcL Eosinophils # 0.3 (0.0-0.6) K/mcL Basophils # 0.0 (0.0-0.2) K/mcL Nucleated RBCs/100 WBC (0) /100 WBC Platelet Estimate Normal (Normal) Large Platelets (Not Present) Polychromasia (Not Present) Hypochromasia Present A (Not Present) Anisocytosis 2+ A (Not Present) Microcytosis Present A (Not Present) Macrocytosis (Not Present) Tear Drop Cells (Not Present) Stomatocytes (Not Present) PT (9.4-12.1) Seconds INR APTT (26.0-36.0) Seconds Sodium (136-145) mEq/L Potassium (3.5-5.1) mEq/L Chloride (98-107) mEq/L Carbon Dioxide (23-29) mEq/L BUN (6-20) mg/dL Creatinine (0.60-1.20) mg/dL Est GFR ( Amer) (> 60) Est GFR (Non-Af Amer) (> 60) BUN/Creatinine Ratio (6-26) Glucose (70-105) mg/dL POC Glucose 204 H (70-99) mg/dL Est Mean Plasma Glucose mg/dl Hemoglobin A1c ( - 5.6) % Calculated Osmolality (280-300) Lactic Acid (0.5-2.2) mmol/L Calcium (8.6-10.3) mg/dL Iron (50-170) mcg/dL % Saturation (15-50) % Transferrin (203-362) mg/dL Ferritin (10-120) ng/mL Total Bilirubin (0.3-1.0) mg/dL AST (13-39) Units/L ALT (7-52) Units/L Alkaline Phosphatase (34-104) Units/L Troponin I (< 0.04) ng/mL B-Natriuretic Peptide (Less than 100) pg/mL Serum Total Protein (6.4-8.9) g/dL Albumin (3.5-5.7) g/dL Globulin (2.4-3.5) g/dL Albumin/Globulin Ratio (1.1-2.2) Triglycerides (< 150) mg/dL Cholesterol (< 200) mg/dL LDL Cholesterol, Calc (0-99) mg/dL VLDL Cholesterol, Calc (< 31) mg/dL HDL Cholesterol (40-59) mg/dL Cholesterol/HDL Ratio (0-4.9) Amylase (29-103) Units/L Lipase (11-82) Units/L Urine Color (Yellow) Urine Clarity (Clear) Urine pH (5.0-8.0) pH Units Ur Specific [place] (1.010-1.025) Urine Protein (Neg-Trace) mg/dL Urine Glucose (UA) (Normal) mg/dL Urine Ketones (Negative) mg/dL Urine Blood (Negative) Urine Nitrite (Negative) Urine Bilirubin (Negative) Urine Urobilinogen (Normal) mg/dL Ur Leukocyte Esterase (Negative) Ur Culture Indicated? (NO) Stool Occult Blood Negative (Negative) Blood Type Antibody Screen 12/02/17 12/02/17 12/02/17 Range/Units 06:28 06:28 06:50 WBC (4.3-11.1) K/mcL RBC (3.82-4.97) M/mcL Hgb (11.5-15.4) g/dL Hct (35.3-44.9) % MCV (83.0-100.0) fL MCH (28.0-33.3) pg MCHC (31.6-35.5) g/dL RDW (11.5-14.5) % Plt Count (140-400) K/mcL MPV (9.4-12.4) fL Immature Gran % (0-4) % Seg Neutrophils % % Lymphocytes % % Monocytes % % Eosinophils % % Basophils % % Neutrophils # (1.6-8.9) K/mcL Lymphocytes # (0.6-4.6) K/mcL Monocytes # (0.0-1.3) K/mcL Eosinophils # (0.0-0.6) K/mcL Basophils # (0.0-0.2) K/mcL Nucleated RBCs/100 WBC (0) /100 WBC Platelet Estimate (Normal) Large Platelets (Not Present) Polychromasia (Not Present) Hypochromasia (Not Present) Anisocytosis (Not Present) Microcytosis (Not Present) Macrocytosis (Not Present) Tear Drop Cells (Not Present) Stomatocytes (Not Present) PT (9.4-12.1) Seconds INR APTT (26.0-36.0) Seconds Sodium 138 (136-145) mEq/L Potassium 4.3 (3.5-5.1) mEq/L Chloride 109 H (98-107) mEq/L Carbon Dioxide 26 (23-29) mEq/L BUN 8 (6-20) mg/dL Creatinine 0.67 (0.60-1.20) mg/dL Est GFR ( Amer) > 60 (> 60) Est GFR (Non-Af Amer) > 60 (> 60) BUN/Creatinine Ratio 12 (6-26) Glucose 370 H (70-105) mg/dL POC Glucose 388 H (70-99) mg/dL Est Mean Plasma Glucose mg/dl Hemoglobin A1c ( - 5.6) % Calculated Osmolality 299 (280-300) Lactic Acid (0.5-2.2) mmol/L Calcium 8.5 L (8.6-10.3) mg/dL Iron (50-170) mcg/dL % Saturation (15-50) % Transferrin (203-362) mg/dL Ferritin 8 L (10-120) ng/mL Total Bilirubin (0.3-1.0) mg/dL AST (13-39) Units/L ALT (7-52) Units/L Alkaline Phosphatase (34-104) Units/L Troponin I (< 0.04) ng/mL B-Natriuretic Peptide 19 (Less than 100) pg/mL Serum Total Protein (6.4-8.9) g/dL Albumin (3.5-5.7) g/dL Globulin (2.4-3.5) g/dL Albumin/Globulin Ratio (1.1-2.2) Triglycerides (< 150) mg/dL Cholesterol (< 200) mg/dL LDL Cholesterol, Calc (0-99) mg/dL VLDL Cholesterol, Calc (< 31) mg/dL HDL Cholesterol (40-59) mg/dL Cholesterol/HDL Ratio (0-4.9) Amylase (29-103) Units/L Lipase (11-82) Units/L Urine Color (Yellow) Urine Clarity (Clear) Urine pH (5.0-8.0) pH Units Ur Specific [place] (1.010-1.025) Urine Protein (Neg-Trace) mg/dL Urine Glucose (UA) (Normal) mg/dL Urine Ketones (Negative) mg/dL Urine Blood (Negative) Urine Nitrite (Negative) Urine Bilirubin (Negative) Urine Urobilinogen (Normal) mg/dL Ur Leukocyte Esterase (Negative) Ur Culture Indicated? (NO) Stool Occult Blood (Negative) Blood Type Antibody Screen 12/02/17 12/02/17 Range/Units 11:09 20:47 WBC (4.3-11.1) K/mcL RBC (3.82-4.97) M/mcL Hgb (11.5-15.4) g/dL Hct (35.3-44.9) % MCV (83.0-100.0) fL MCH (28.0-33.3) pg MCHC (31.6-35.5) g/dL RDW (11.5-14.5) % Plt Count (140-400) K/mcL MPV (9.4-12.4) fL Immature Gran % (0-4) % Seg Neutrophils % % Lymphocytes % % Monocytes % % Eosinophils % % Basophils % % Neutrophils # (1.6-8.9) K/mcL Lymphocytes # (0.6-4.6) K/mcL Monocytes # (0.0-1.3) K/mcL Eosinophils # (0.0-0.6) K/mcL Basophils # (0.0-0.2) K/mcL Nucleated RBCs/100 WBC (0) /100 WBC Platelet Estimate (Normal) Large Platelets (Not Present) Polychromasia (Not Present) Hypochromasia (Not Present) Anisocytosis (Not Present) Microcytosis (Not Present) Macrocytosis (Not Present) Tear Drop Cells (Not Present) Stomatocytes (Not Present) PT (9.4-12.1) Seconds INR APTT (26.0-36.0) Seconds Sodium (136-145) mEq/L Potassium (3.5-5.1) mEq/L Chloride (98-107) mEq/L Carbon Dioxide (23-29) mEq/L BUN (6-20) mg/dL Creatinine (0.60-1.20) mg/dL Est GFR ( Amer) (> 60) Est GFR (Non-Af Amer) (> 60) BUN/Creatinine Ratio (6-26) Glucose (70-105) mg/dL POC Glucose 381 H 219 H (70-99) mg/dL Est Mean Plasma Glucose mg/dl Hemoglobin A1c ( - 5.6) % Calculated Osmolality (280-300) Lactic Acid (0.5-2.2) mmol/L Calcium (8.6-10.3) mg/dL Iron (50-170) mcg/dL % Saturation (15-50) % Transferrin (203-362) mg/dL Ferritin (10-120) ng/mL Total Bilirubin (0.3-1.0) mg/dL AST (13-39) Units/L ALT (7-52) Units/L Alkaline Phosphatase (34-104) Units/L Troponin I (< 0.04) ng/mL B-Natriuretic Peptide (Less than 100) pg/mL Serum Total Protein (6.4-8.9) g/dL Albumin (3.5-5.7) g/dL Globulin (2.4-3.5) g/dL Albumin/Globulin Ratio (1.1-2.2) Triglycerides (< 150) mg/dL Cholesterol (< 200) mg/dL LDL Cholesterol, Calc (0-99) mg/dL VLDL Cholesterol, Calc (< 31) mg/dL HDL Cholesterol (40-59) mg/dL Cholesterol/HDL Ratio (0-4.9) Amylase (29-103) Units/L Lipase (11-82) Units/L Urine Color (Yellow) Urine Clarity (Clear) Urine pH (5.0-8.0) pH Units Ur Specific [place] (1.010-1.025) Urine Protein (Neg-Trace) mg/dL Urine Glucose (UA) (Normal) mg/dL Urine Ketones (Negative) mg/dL Urine Blood (Negative) Urine Nitrite (Negative) Urine Bilirubin (Negative) Urine Urobilinogen (Normal) mg/dL Ur Leukocyte Esterase (Negative) Ur Culture Indicated? (NO) Stool Occult Blood (Negative) Blood Type Antibody Screen Attestation Statement - Attestation Attestation: I examined this patient and my medical decision-making was reviewed with the COAL PULVERIZER OPERATOR/PA/Advanced Practice Nurse/Resident Physician. I agree with the documented findings, disposition and treatment plan as described except to the extent set forth below. Patient presents after having low oxygen saturations yesterday ranging between 75% and 88%, anemia with hemoglobin of 8.9 and did have confusion yesterday which has persisted into today and is improved today. The mother says the patient has a history of seizures and does have chronic problems as well the patient does have a history of leukemia. I did review the lab test. 175
[2017-11-30] MEDS ORDERED: Isovue-370 500 ML INFUS..BTL IV ONE (18:00)
[2017-11-30] MEDS ORDERED: 0.9 % Sodium Chloride 1,000 ML IVC ONE (19:22)
[2017-11-30 19:51] LABS: % Iron Saturation 3 % (15-50); Iron 14 mcg/dL (50-170); Transferrin 393 mg/dL (203-362)
[2017-11-30 20:05] LABS: Bilirubin,Urine Negative (Negative); Blood,Urine Negative (Negative); Clarity,Urine Clear (Clear); Color,Urine Yellow (Yellow); Glucose,Urine (UA) Normal (Normal); Ketones,Urine Negative (Negative); Leukocyte Esterase,Urine Negative (Negative); Nitrite,Urine Negative (Negative); PH,Urine 6.5 pH Units (5.0-8.0); Protein,Urine Negative (Neg-Trace); Urobilinogen,Urine Normal (Normal)
--- NOTE | 2017-11-30 20:54 | Emergency Department Note ---
Disposition Clinical Impression: Hypoxia, Elevated lactic acid level Anemia Qualifiers: Anemia type: unspecified type Qualified Code(s): D64.9 - Anemia, unspecified Disposition: Admitted As Inpatient Condition: Fair Time of Disposition: 20:54 General Adult HPI - General Chief complaint: ED Recheck/Abnormal Lab/Rx Stated complaint: Low hemoglobin,Low O2 Time Seen by Provider: 11/30/17 17:20 Source: patient Mode of arrival: ambulatory Limitations: no limitations - History of Present Illness Pain Scale: 0 - Related Data Home Medications Medication Instructions Recorded Confirmed Cetirizine HCl [Cetirizine HCl] 10 mg PO DAILY 11/30/17 11/30/17 Cholecalciferol (Vitamin D3) 2,000 unit PO DAILY 11/30/17 11/30/17 [Vitamin D3] Clobazam [Onfi] 20 mg PO BID 11/30/17 11/30/17 Dulaglutide [Trulicity] 0.75 mg SQ QWEEK 11/30/17 11/30/17 Ferrous Sulfate [Ferrous Sulfate] 325 mg PO BID 11/30/17 11/30/17 Folic Acid [Folic Acid] 1 mg PO DAILY 11/30/17 11/30/17 Ibuprofen [Ibuprofen] 800 mg PO Q8H PRN 11/30/17 11/30/17 Metformin HCl [Fortamet] 1,000 mg PO BID 11/30/17 11/30/17 Perampanel [Fycompa] 4 mg PO BID 11/30/17 11/30/17 RX: Aspirin Enteric Coated 81 mg PO DAILY 11/30/17 11/30/17 [Aspirin EC] RX: Buspirone HCl [Buspar] 15 mg PO TID PRN 11/30/17 11/30/17 RX: Docusate [Colace] 100 mg PO BID 11/30/17 11/30/17 RX: Levothyroxine Sodium 88 mcg PO DAILY 11/30/17 11/30/17 RX: Nateglinide [Starlix] 120 mg PO TIDWM 11/30/17 11/30/17 RX: Nitrofurantoin [Macrodantin] 50 mg PO DAILY 11/30/17 11/30/17 RX: Omeprazole [PriLOSEC] 40 mg PO BID 11/30/17 11/30/17 RX: Potassium Chloride 20 meq PO BID 11/30/17 11/30/17 RX: Sennosides [Senna] 8.6 mg PO BID 11/30/17 11/30/17 RX: cephALEXin [Keflex] 500 mg PO Q6H 11/30/17 11/30/17 Rufinamide [Banzel] 800 mg PO BID 11/30/17 11/30/17 Topiramate [Topamax] 300 mg PO QAM 11/30/17 11/30/17 Topiramate [Topamax] 400 mg PO QPM 11/30/17 11/30/17 hydroCHLOROthiazide 12.5 mg PO DAILY PRN 11/30/17 11/30/17 [Hydrochlorothiazide] lamoTRIgine [Lamictal] 200 mg PO QAM 11/30/17 11/30/17 lamoTRIgine [Lamictal] 300 mg PO QPM 11/30/17 11/30/17 Allergies Allergy/AdvReac Type Severity Reaction Status Date / Time Sulfa (Sulfonamide AdvReac Mild Nausea Verified 11/30/17 20:03 Antibiotics) Constitutional: Denies: fever Cardiovascular: Reports: chest pain. Denies: palpitations Respiratory: Reports: dyspnea. Denies: cough Gastrointestinal: Denies: abdominal pain, nausea, vomiting, diarrhea Genitourinary: Denies: urgency, dysuria Past Medical History - Past Medical History Medical history: Reports: other Psychiatric history: Reports: no psych history CENTRIFUGAL SPINNER history: Reports: no CENTRIFUGAL SPINNER history - Social History Smoking Status: Never smoker Smokeless Tobacco Status: No Alcohol use: Reports: none Drug use: Reports: none Physical Exam - General Limitations: no limitations General appearance: alert, in no apparent distress Course - Reevaluation(s) Reevaluation #1: Patient signed out pending. CTA of the chest. Was negative for PE. Added on iron profile, which does show iron deficiency anemia. Patient also has been intermittently hypoxic. Does not have oxygen at home. We will admit for hypoxia and further workup with likely overnight qualification for oxygen. Repeat lactic acid is pending, but there is no obvious source of infection. Do not think that she meets sepsis criteria at this time Time: 20:53 Vital Signs Temperature 98 F 11/30/17 16:11 Pulse Rate 92 11/30/17 16:11 Respiratory Rate 20 11/30/17 16:11 Blood Pressure 123/77 11/30/17 16:11 O2 Sat by Pulse Oximetry 92 11/30/17 16:11 Temperature 97.9 F 11/30/17 22:56 Pulse Rate 97 11/30/17 22:56 Respiratory Rate 14 12/01/17 01:58 Blood Pressure 124/84 11/30/17 22:56 O2 Sat by Pulse Oximetry 95 12/01/17 01:58 Oxygen Delivery Oxygen Delivery Room Air Medical Decision Making - Lab Data Result diagrams: 12/01/17 01:25 12/01/17 01:25 Lab Results 11/30/17 11/30/17 11/30/17 Range/Units 16:57 16:57 16:57 WBC 9.7 (4.3-11.1) K/mcL RBC 4.24 (3.82-4.97) M/mcL Hgb 8.9 L (11.5-15.4) g/dL Hct 31.5 L (35.3-44.9) % MCV 74.3 L (83.0-100.0) fL MCH 21.0 L (28.0-33.3) pg MCHC 28.3 L (31.6-35.5) g/dL RDW 20.3 H (11.5-14.5) % Plt Count 330 (140-400) K/mcL MPV 8.4 L (9.4-12.4) fL Immature Gran % 0.7 (0-4) % Seg Neutrophils % 68.5 % Lymphocytes % 23.0 % Monocytes % 3.1 % Eosinophils % 4.2 % Basophils % 0.5 % Neutrophils # 6.6 (1.6-8.9) K/mcL Lymphocytes # 2.2 (0.6-4.6) K/mcL Monocytes # 0.3 (0.0-1.3) K/mcL Eosinophils # 0.4 (0.0-0.6) K/mcL Basophils # 0.1 (0.0-0.2) K/mcL Platelet Estimate Normal (Normal) Large Platelets Present A (Not Present) Hypochromasia Present A (Not Present) Anisocytosis 2+ A (Not Present) Microcytosis Present A (Not Present) Sodium 140 (136-145) mEq/L Potassium 3.9 (3.5-5.1) mEq/L Chloride 103 (98-107) mEq/L Carbon Dioxide 26 (23-29) mEq/L BUN 8 (6-20) mg/dL Creatinine 0.68 (0.60-1.20) mg/dL Est GFR ( Amer) > 60 (> 60) Est GFR (Non-Af Amer) > 60 (> 60) BUN/Creatinine Ratio 12 (6-26) Glucose 205 H (70-105) mg/dL Calculated Osmolality 294 (280-300) Lactic Acid 3.1 H (0.5-2.2) mmol/L Calcium 9.7 (8.6-10.3) mg/dL Iron 14 L (50-170) mcg/dL % Saturation 3 L (15-50) % Transferrin 393 H (203-362) mg/dL Troponin I < 0.03 (< 0.04) ng/mL B-Natriuretic Peptide (Less than 100) pg/mL Urine Color (Yellow) Urine Clarity (Clear) Urine pH (5.0-8.0) pH Units Ur Specific [place] (1.010-1.025) Urine Protein (Neg-Trace) mg/dL Urine Glucose (UA) (Normal) mg/dL Urine Ketones (Negative) mg/dL Urine Blood (Negative) Urine Nitrite (Negative) Urine Bilirubin (Negative) Urine Urobilinogen (Normal) mg/dL Ur Leukocyte Esterase (Negative) Ur Culture Indicated? (NO) Blood Type Antibody Screen 11/30/17 11/30/17 11/30/17 Range/Units 16:57 16:57 20:00 WBC (4.3-11.1) K/mcL RBC (3.82-4.97) M/mcL Hgb (11.5-15.4) g/dL Hct (35.3-44.9) % MCV (83.0-100.0) fL MCH (28.0-33.3) pg MCHC (31.6-35.5) g/dL RDW (11.5-14.5) % Plt Count (140-400) K/mcL MPV (9.4-12.4) fL Immature Gran % (0-4) % Seg Neutrophils % % Lymphocytes % % Monocytes % % Eosinophils % % Basophils % % Neutrophils # (1.6-8.9) K/mcL Lymphocytes # (0.6-4.6) K/mcL Monocytes # (0.0-1.3) K/mcL Eosinophils # (0.0-0.6) K/mcL Basophils # (0.0-0.2) K/mcL Platelet Estimate (Normal) Large Platelets (Not Present) Hypochromasia (Not Present) Anisocytosis (Not Present) Microcytosis (Not Present) Sodium (136-145) mEq/L Potassium (3.5-5.1) mEq/L Chloride (98-107) mEq/L Carbon Dioxide (23-29) mEq/L BUN (6-20) mg/dL Creatinine (0.60-1.20) mg/dL Est GFR ( Amer) (> 60) Est GFR (Non-Af Amer) (> 60) BUN/Creatinine Ratio (6-26) Glucose (70-105) mg/dL Calculated Osmolality (280-300) Lactic Acid (0.5-2.2) mmol/L Calcium (8.6-10.3) mg/dL Iron (50-170) mcg/dL % Saturation (15-50) % Transferrin (203-362) mg/dL Troponin I (< 0.04) ng/mL B-Natriuretic Peptide 11 (Less than 100) pg/mL Urine Color Yellow (Yellow) Urine Clarity Clear (Clear) Urine pH 6.5 (5.0-8.0) pH Units Ur Specific [place] 1.030 H (1.010-1.025) Urine Protein Negative (Neg-Trace) mg/dL Urine Glucose (UA) Normal (Normal) mg/dL Urine Ketones Negative (Negative) mg/dL Urine Blood Negative (Negative) Urine Nitrite Negative (Negative) Urine Bilirubin Negative (Negative) Urine Urobilinogen Normal (Normal) mg/dL Ur Leukocyte Esterase Negative (Negative) Ur Culture Indicated? NO (NO) Blood Type A NEGATIVE Antibody Screen NEGATIVE 11/30/17 Range/Units 21:01 WBC (4.3-11.1) K/mcL RBC (3.82-4.97) M/mcL Hgb (11.5-15.4) g/dL Hct (35.3-44.9) % MCV (83.0-100.0) fL MCH (28.0-33.3) pg MCHC (31.6-35.5) g/dL RDW (11.5-14.5) % Plt Count (140-400) K/mcL MPV (9.4-12.4) fL Immature Gran % (0-4) % Seg Neutrophils % % Lymphocytes % % Monocytes % % Eosinophils % % Basophils % % Neutrophils # (1.6-8.9) K/mcL Lymphocytes # (0.6-4.6) K/mcL Monocytes # (0.0-1.3) K/mcL Eosinophils # (0.0-0.6) K/mcL Basophils # (0.0-0.2) K/mcL Platelet Estimate (Normal) Large Platelets (Not Present) Hypochromasia (Not Present) Anisocytosis (Not Present) Microcytosis (Not Present) Sodium (136-145) mEq/L Potassium (3.5-5.1) mEq/L Chloride (98-107) mEq/L Carbon Dioxide (23-29) mEq/L BUN (6-20) mg/dL Creatinine (0.60-1.20) mg/dL Est GFR ( Amer) (> 60) Est GFR (Non-Af Amer) (> 60) BUN/Creatinine Ratio (6-26) Glucose (70-105) mg/dL Calculated Osmolality (280-300) Lactic Acid 2.8 H (0.5-2.2) mmol/L Calcium (8.6-10.3) mg/dL Iron (50-170) mcg/dL % Saturation (15-50) % Transferrin (203-362) mg/dL Troponin I (< 0.04) ng/mL B-Natriuretic Peptide (Less than 100) pg/mL Urine Color (Yellow) Urine Clarity (Clear) Urine pH (5.0-8.0) pH Units Ur Specific [place] (1.010-1.025) Urine Protein (Neg-Trace) mg/dL Urine Glucose (UA) (Normal) mg/dL Urine Ketones (Negative) mg/dL Urine Blood (Negative) Urine Nitrite (Negative) Urine Bilirubin (Negative) Urine Urobilinogen (Normal) mg/dL Ur Leukocyte Esterase (Negative) Ur Culture Indicated? (NO) Blood Type Antibody Screen Attestation Statement - Attestation Attestation: I examined this patient and my medical decision-making was reviewed with the Resident Physician. I agree with the documented findings, disposition and treatment plan as described except to the extent set forth below. Findings consistent with anemia. Patient also has hypoxia, CT scan of the chest shows no acute findings. Suspect iron deficiency anemia and lactic acidosis. We will admit for further management, trending of lactate, evaluation of hypoxia. No evidence of pulmonary embolus him at this time.
--- NOTE | 2017-12-01 00:16 | Internal Med History&Physical ---
Date of Encounter: 12/01/17 Time of Encounter: 00:10 Internal Medicine - H&P: HPI Chief complaint: SOB Admitted From: Home History of present illness: Ms. Galicia is a 42 year old female with a past medical history of leukemia, diabetes mellitus type 2, asthma, BRANDY with CPAP use at night, seizure disorder, and cognitive delay presents from home secondary to low oxygen saturations ranging between 75% and 88%. Patient reports history of chronic anemia, fatigue , chronic sharp, non-radiating anterior chest wall tenderness, and occasional vaginal bleeding that has decreased over the past few days. Patient recently completed treatment for UTI with Macrobid but describes ongoing dysuria. She denies fever, chills, nausea, vomiting, diarrhea, constipation, urinary frequency, urinary urgency, or leg edema. Sister is at bedside during time of exam. Past Med Surg Social Fam HX - Past Medical History Medical history: CVA, diabetes, GERD, seizures, thyroid disease, other Psychiatric history: no psych history - Past Surgical History Surgical History: orthopedic, other (Right knee replacement) - Social History Smoking Status: Never smoker Smokeless Tobacco Status: No Alcohol use: none Drug use: none Current living situation: Home, With Family Activity Level: Uses cane/walker - Family History Mother Hx Family Cardiac Disorders: Yes (Hypertension) Hx Family Endocrine Disorder: Yes (Diabetes) Father Hx Family Cardiac Disorders: Yes (Hypertension) Hx Family Endocrine Disorder: Yes (Diabetes) Internal Medicine - H&P: Meds Aspirin Enteric Coated [Aspirin EC] 81 mg PO DAILY 11/30/17 [History] Buspirone HCl [Buspar] 15 mg PO TID PRN 11/30/17 [History] Cetirizine HCl [Cetirizine HCl] 10 mg PO DAILY 11/30/17 [History] Cholecalciferol (Vitamin D3) [Vitamin D3] 2,000 unit PO DAILY 11/30/17 [History] Clobazam [Onfi] 20 mg PO BID 11/30/17 [History] Docusate [Colace] 100 mg PO BID 11/30/17 [History] Dulaglutide [Trulicity] 0.75 mg SQ QWEEK 11/30/17 [History] Ferrous Sulfate [Ferrous Sulfate] 325 mg PO BID 11/30/17 [History] Folic Acid [Folic Acid] 1 mg PO DAILY 11/30/17 [History] Ibuprofen [Ibuprofen] 800 mg PO Q8H PRN 11/30/17 [History] Levothyroxine Sodium 88 mcg PO DAILY 11/30/17 [History] Metformin HCl [Fortamet] 1,000 mg PO BID 11/30/17 [History] Nateglinide [Starlix] 120 mg PO TIDWM 11/30/17 [History] Nitrofurantoin [Macrodantin] 50 mg PO DAILY 11/30/17 [History] Omeprazole [PriLOSEC] 40 mg PO BID 11/30/17 [History] Perampanel [Fycompa] 4 mg PO BID 11/30/17 [History] Potassium Chloride 20 meq PO BID 11/30/17 [History] Rufinamide [Banzel] 800 mg PO BID 11/30/17 [History] Sennosides [Senna] 8.6 mg PO BID 11/30/17 [History] Topiramate [Topamax] 300 mg PO QAM 11/30/17 [History] Topiramate [Topamax] 400 mg PO QPM 11/30/17 [History] cephALEXin [Keflex] 500 mg PO Q6H 11/30/17 [History] hydroCHLOROthiazide [Hydrochlorothiazide] 12.5 mg PO DAILY PRN 11/30/17 [History ] lamoTRIgine [Lamictal] 200 mg PO QAM 11/30/17 [History] lamoTRIgine [Lamictal] 300 mg PO QPM 11/30/17 [History] 3 Allergy/AdvReac Type Severity Reaction Status Date / Time Sulfa (Sulfonamide AdvReac Mild Nausea Verified 11/30/17 20:03 Antibiotics) All Systems PM: A 10-system review of systems was performed and is negative for pertinent findings except as documented above in the HPI. - Constitutional Constitutional: falls, weakness, no anorexia, no chills, no fever(s), no weight gain, no weight loss - EENT Eyes: no blurry vision, no diplopia Nose, mouth and throat: no sinus pain, no sore throat - Cardiovascular Cardiovascular ROS IM: chest pain, dyspnea, no lightheadedness, no palpitations , no syncope - Respiratory Respiratory: dyspnea - Gastrointestinal Gastrointestinal: heartburn, no abdominal pain, no constipation, no diarrhea, no nausea, no vomiting - Genitourinary Genitourinary: dysuria, no flank pain, no hematuria, no urinary frequency, no urinary urgency Menstruation: period normal - Musculoskeletal Musculoskeletal ROS IM: no arthralgias, no back pain, no numbness, no tingling - Integumentary Integumentary IM: no erythema, no rash, no skin ulcer - Neurological Neurological ROS: abnormal gait, confusion, disequilibrium, weakness, no numbness, no tingling - Psychiatric Psychiatric: no anxiety, no depression - Endocrine Endocrine IM: fatigue, no polydipsia, no polyphagia, no polyuria - Hematologic/Lymphatic Hematologic/Lymphatic: no easy bleeding, no easy bruising - Constitutional Vitals: Temp Pulse Resp BP Pulse Ox 97.9 F 97 18 124/84 95 11/30/17 22:56 11/30/17 22:56 11/30/17 22:56 11/30/17 22:56 11/30/17 22:56 General appearance: Present: cooperative, pleasant, no acute distress, obese, answers questions appropriately - Head Head exam: Present: atraumatic, normocephalic - Eye Eye exam: Present: EOMI, conjuntiva pink, sclera anicteric - ENT ENT exam: Present: mucous membranes dry, normal oropharynx - Neck Neck exam general surgery: Present: supple, trachea midline. Absent: lymphadenopathy - Respiratory Respiratory exam: Present: CTAB. Absent: accessory muscle use, rales, rhonchi, wheezes - Cardiovascular Cardiovascular exam: Present: RRR, +S1, +S2. Absent: diastolic murmur, gallop, rubs, systolic murmur - GI/Abdominal GI/Abdominal exam: Present: normal bowel sounds, soft, no peritoneal signs. Absent: distended, guarding, tenderness - Extremities Exam Extremities exam: Present: normal inspection, warm, radial pulses palpable and symmetrical. Absent: calf tenderness, cyanotic, pedal edema - Back Exam Back exam: Present: normal inspection. Absent: paraspinal tenderness, tenderness - Neurological Exam Neurological exam: Present: alert (Conversant), CN II-XII intact, no focal deficits. Absent: pronater drift, facial droop, speech deficit - Psychiatric Psychiatric exam: Present: normal affect, normal mood - Skin Skin exam: Present: dry, intact, pallor, warm Internal Med - H&P Results - Labs CBC & Chem 7: 12/01/17 01:25 12/01/17 01:25 - Pulse Oximetry Interpretation Digit-Finger O2 Sat by Pulse Oximetry: 95 (On room air) - Impressions ITS Impressions Chest X-Ray 11/30/17 17:49 IMPRESSION: Pulmonary vascular congestion D/ / Norman Enrique MD / Norman Enrique MD Interpreting Provider: Norman Enrique MD Chest CTA 11/30/17 18:00 IMPRESSION: No evidence of pulmonary embolism or acute pulmonary abnormality. Incidental fatty infiltration of the liver. D/ / Odalis Lemus MD / Odalis Lemus MD Interpreting Provider: Odalis Lemus MD Head CT 11/30/17 19:22 IMPRESSION: No acute intracranial abnormality. D/ / Blaze Hernandez MD / Blaze Hernandez MD Interpreting Provider: Blaze Hernandez MD - Assessment and plan (1) Acute respiratory failure with hypoxia Current Visit: Yes Status: Acute Assessment and plan: Patient with asthma and BRANDY presents with low oxygen saturations yesterday ranging between 75% and 88% CXR revealed Pulmonary vascular congestion Chest CTA revealed No evidence of pulmonary embolism or acute pulmonary abnormality. Continue bronchodilators Continue CPAP at night Consider home oxygen qualification prior to discharge (2) Anemia, iron deficiency Current Visit: Yes Status: Acute Assessment and plan: 42-year-old female with occasional vaginal bleeding that has decreased over the past few days. Iron profile, reveals iron deficiency anemia. Patient is already on iron supplementation Continue iron supplementation Type and screen completed Closely monitor CBC Continue PPI Nothing by mouth after midnight Qualifiers: Iron deficiency anemia type: chronic blood loss Qualified Code(s): D50.0 - Iron deficiency anemia secondary to blood loss (chronic) (3) Vaginal bleeding Current Visit: Yes Status: Acute Assessment and plan: 42-year-old female with occasional vaginal bleeding that has decreased over the past few days. Continue monitoring (4) History of leukemia Current Visit: No Status: Chronic Assessment and plan: Outpatient management (5) Asthma Current Visit: Yes Status: Chronic Assessment and plan: Not in acute exacerbation CXR revealed pulmonary vascular congestion Continue bronchodilators and CPAP Qualifiers: Asthma severity: mild Asthma persistence: persistent Asthma complication type: uncomplicated Qualified Code(s): J45.30 - Mild persistent asthma, uncomplicated (6) DM type 2 (diabetes mellitus, type 2) Current Visit: Yes Status: Chronic Assessment and plan: Hemoglobin A1c level pending Continue Accu-Cheks every 6 hours Continue low dose SSI Continue close monitoring Qualifiers: Diabetes mellitus correction insulin use: without chain saw mechanic use Diabetes mellitus complication status: without complication Qualified Code(s): E11.9 - Type 2 diabetes mellitus without complications (7) History of CVA (cerebrovascular accident) Current Visit: No Status: Chronic Assessment and plan: Patient with mild cognitive delay status post previous CVA. Head CT revealed No acute intracranial abnormality. Change in mental status per family, continue supplement oxygen and close monitoring (8) History of seizures Current Visit: No Status: Chronic Assessment and plan: Continue home meds Fall precautions (9) Elevated lactic acid level Current Visit: No Status: Chronic Assessment and plan: Lactic acid level 3.1 --> 2.3 No Sirs criteria or signs of infection Continue IV fluids Repeat lactic acid level in a.m. (10) BRANDY on CPAP Current Visit: Yes Status: Chronic Assessment and plan: Continue CPAP at bedtime (11) Obesity (BMI 30-39.9) Current Visit: No Status: Chronic (12) DVT prophylaxis Current Visit: Yes Status: Acute Assessment and plan: EPCDs - Time Spent With Patient Total time spent is greater than 50% in coordination of care (as documented) at patient's floor/unit and/or counseling patient:
[2017-12-01] MEDS ORDERED: Naloxone 0.4 MG/ML INJ IVP PRN (00:45)
[2017-12-01] MEDS ORDERED: Acetaminophen 325 MG TABLET PO PRN (00:50)
[2017-12-01] MEDS ORDERED: Ondansetron 4 MG/2 ML VIAL IVP PRN (00:50)
[2017-12-01] MEDS ORDERED: Dextrose Gel 15 GM/37.5 ML TUBE PO PRN ×2 (01:03)
[2017-12-01] MEDS ORDERED: D5% in Water 1,000 ML IVC PRN (01:03)
[2017-12-01] MEDS ORDERED: *HR* Dextrose 50 % in Water (Syg) 50 ML SYRINGE IVP PRN (01:03)
[2017-12-01 01:41] LABS: Basophils % 0.4 %; Nucleated Red Blood Cells 0.2 /100 WBC (0)
[2017-12-01 01:43] LABS: Eosinophils # 0.4 K/mcL (0.0-0.6); Eosinophils % 3.9 %; Hematocrit 29.6 % (35.3-44.9); Hemoglobin 8.3 g/dL (11.5-15.4); Immature Granulocytes % 1.1 % (0-4); Lymphocytes # 2.2 K/mcL (0.6-4.6); Mean Corpuscular Hemoglobin 21.2 pg (28.0-33.3); Mean Corpuscular Volume 75.5 fL (83.0-100.0); Mean Platelet Volume 8.3 fL (9.4-12.4); Monocytes # 0.3 K/mcL (0.0-1.3); Monocytes % 3.3 %; Neutrophils # 6.2 K/mcL (1.6-8.9); Platelet Count 305 K/mcL (140-400); Red Blood Count 3.92 M/mcL (3.82-4.97); Segmented Neutrophils % 67.3 %
[2017-12-01 01:52] LABS: Prothrombin Time 11.1 Seconds (9.4-12.1)
[2017-12-01 01:55] LABS: Activated Partial Thrombo Time 29.7 Seconds (26.0-36.0)
[2017-12-01 01:58] LABS: Alanine Aminotransferase 10 Units/L (7-52); Albumin 3.6 g/dL (3.5-5.7); Albumin/Globulin Ratio 1.1 (1.1-2.2); Alkaline Phosphatase 79 Units/L (34-104); Aspartate Amino Transferase 9 Units/L (13-39); BUN/Creatinine Ratio 12 (6-26); Bilirubin,Total 0.3 mg/dL (0.3-1.0); Blood Urea Nitrogen 8 mg/dL (6-20); Calcium 8.6 mg/dL (8.6-10.3); Carbon Dioxide 26 mEq/L (23-29); Chloride 107 mEq/L (98-107); Chol/HDL Ratio 7.2 (0-4.9); Cholesterol 129 mg/dL (< 200); Globulin 3.4 g/dL (2.4-3.5); Glucose 326 mg/dL (70-105); HDL Cholesterol 18 mg/dL (40-59); LDL Cholesterol,Calculated 31 mg/dL (0-99); Osmolality,Calculated 297 (280-300); Potassium 3.8 mEq/L (3.5-5.1); Sodium 138 mEq/L (136-145); Triglycerides 398 mg/dL (< 150); eGFR For Non-African Americans > 60 (> 60)
[2017-12-01 02:27] LABS: Anisocytosis 2+ (Not Present)
[2017-12-01 02:28] LABS: Hypochromasia Present (Not Present); Macrocytosis Present (Not Present); Microcytosis Present (Not Present); Polychromasia 1+ (Not Present)
[2017-12-01 02:29] LABS: Platelet Estimate Normal (Normal); Stomatocytes 2+ (Not Present); Tear Drop Cells 1+ (Not Present)
[2017-12-01 02:30] LABS: Large Platelets Present (Not Present)
[2017-12-01] MEDS: 0.9 % Sodium Chloride 1,000 ML IVC SCH ×2 (03:15→22:51)
[2017-12-01] MEDS ORDERED: *HR* Heparin 5,000 UNIT/ML VIAL SQ SCH (06:00)
[2017-12-01] MEDS ORDERED: Insulin LISPRO 300 UNITS/3 ML VIAL SQ SCH (06:00)
[2017-12-01] MEDS: Pantoprazole 40 MG VIAL IVP SCH ×2 (06:54→18:30)
[2017-12-01 07:05] LABS: Troponin I < 0.03 ng/mL (< 0.04)
[2017-12-01 08:17] LABS: Hemoglobin 8.6 g/dL (11.5-15.4)
[2017-12-01 08:24] LABS: Estimated Average Glucose 197 mg/dl; Hemoglobin A1C 8.5 %
[2017-12-01] MEDS ORDERED: Topiramate 100 MG TABLET PO SCH ×2 (09:00→18:00)
[2017-12-01] MEDS ORDERED: lamoTRIgine 100 MG TABLET PO SCH ×2 (09:00→18:00)
[2017-12-01] MEDS: Loratadine 10 MG TABLET PO SCH (09:23)
[2017-12-01] MEDS: Aspirin Enteric Coated 81 MG Tablet PO SCH (09:23)
[2017-12-01] MEDS: Sennosides 8.6 MG TABLET PO SCH ×2 (09:23→22:32)
[2017-12-01] MEDS: Cholecalciferol (D-3) 1,000 UNIT TABLET PO SCH (09:23)
[2017-12-01] MEDS: Folic Acid 1 MG TABLET PO SCH (09:23)
[2017-12-01] MEDS ORDERED: Perflutren Lipid Microsphere 1.3 ML in 0.9 % Sodium Chloride 8.7 ML IVP ONE (09:35)
[2017-12-01] MEDS: Insulin LISPRO 300 UNITS/3 ML VIAL SQ SCH ×2 (12:05→18:24)
--- NOTE | 2017-12-01 12:14 | Internal Med Progress Note ---
Date of Encounter: 12/01/17 Time of Encounter: 12:12 - Assessment and plan (1) Acute respiratory failure with hypoxia Current Visit: Yes Status: Acute Assessment and plan: Patient with asthma and BRANDY presents with low oxygen saturations ranging between 75% and 88% CXR revealed Pulmonary vascular congestion butChest CTA revealed No evidence of pulmonary embolism or acute pulmonary abnormality. Suspicion for underlying pneumonia therefore empiric antibiotic is started along with nebulization, incentive spirometry and oxygen supplementation. Continue CPAP (2) Elevated lactic acid level Current Visit: No Status: Chronic Assessment and plan: Possible sepsis. has low blood pressure with slight tachycardia, normal white count but elevated Lactic acid level . Patient also had hypoxic events. High possibility for aspiration pneumonia based on recent seizure episode and crepitation on the right side though chest x-ray and CT chest did not comment on it. Blood culture, urine culture ordered. Started Levaquin. (3) History of leukemia Current Visit: No Status: Chronic Assessment and plan: Outpatient management as per PCP. In remission (4) Anemia, iron deficiency Current Visit: Yes Status: Acute Assessment and plan: 42-year-old female with occasional vaginal bleeding that has decreased over the past few days. Patient has iron deficiency anemia therefore taking iron supplementation. Ordered stool occult. Patient has history of multiple blood transfusion in the past. Does not no baseline hemoglobin level. Will continue to monitor if trending down hemoglobin will consider blood transfusion. Continue PPI. Qualifiers: Iron deficiency anemia type: chronic blood loss Qualified Code(s): D50.0 - Iron deficiency anemia secondary to blood loss (chronic) (5) History of CVA (cerebrovascular accident) Current Visit: No Status: Chronic Assessment and plan: Patient with mild cognitive delay status post previous CVA. CT head with no acute finding. Back to almost baseline mental status as per family. (6) Asthma Current Visit: Yes Status: Chronic Assessment and plan: Not in acute exacerbation he did continue home medicine CXR revealed pulmonary vascular congestion-but patient does not appear in volume overloaded. Qualifiers: Asthma severity: mild Asthma persistence: persistent Asthma complication type: uncomplicated Qualified Code(s): J45.30 - Mild persistent asthma, uncomplicated (7) Vaginal bleeding Current Visit: Yes Status: Acute Assessment and plan: 42-year-old female with occasional vaginal bleeding that has decreased over the past few days. Chronic issue that can be dealt outpatient by PCP. Continue monitoring hemoglobin (8) History of seizures Current Visit: No Status: Chronic Assessment and plan: Chronic recurrent even on anti-seizure medicine. Patient follow neurologists at [facility] who is aware. Continue home meds Fall , seizure and aspiration precautions (9) Obesity (BMI 30-39.9) Current Visit: No Status: Chronic Assessment and plan: Diet and exercise (10) DM type 2 (diabetes mellitus, type 2) Current Visit: Yes Status: Chronic Assessment and plan: Hemoglobin A1c 8.5.Continue Accu-Cheks every 6 hours,Continue low dose SSI Continue close monitoring. Diabetic diet Qualifiers: Diabetes mellitus skilled nursing insulin use: without regional intermodal truck driver use Diabetes mellitus complication status: without complication Qualified Code(s): E11.9 - Type 2 diabetes mellitus without complications (11) BRANDY on CPAP Current Visit: Yes Status: Chronic Assessment and plan: Continue CPAP at bedtime (12) DVT prophylaxis Current Visit: Yes Status: Acute Assessment and plan: EPCDs - Time Spent With Patient Total time spent is greater than 50% in coordination of care (as documented) at patient's floor/unit and/or counseling patient: 25 - 35 minutes - Subjective Interval history: Patient is saturating in 90s at room air. As per mother patient had intermittent hypoxia for last 2-3 days and lowest saturation in the 70s as per mother who is also set decorator. Patient also get intermittent seizure and last episode 2 days back when she was almost collapsed but recovered well. Her neurologist at [facility] follow for this complicated seizure in [place] with frequent episodes of seizures even on anti-seizure medicine. Patient has intermittent cough. Denies fever chills vomiting headache dizziness chest pain. Patient feels tired , nausea, intermittent shortness of breath, foul urine is smell. Patient has recurrent UTI and has been following urologist Dr. Bravo. She supposed to his start Macrobid as prophylactic therapy but did not start yet. Patient also has recent completion of Keflex course for possible sinus infection. - Constitutional Vitals: Temp Pulse Resp BP Pulse Ox 98.4 F 87 19 94/54 91 12/01/17 11:49 12/01/17 11:49 12/01/17 11:49 12/01/17 11:49 12/01/17 11:49 General appearance: Present: cooperative, pleasant, no acute distress, obese, answers questions appropriately Exam: General appearance: No acute distress, A&O X 3, obese. Mother at bedside Head exam: Atraumatic Eye exam: EOMI, PERRLA ENT exam: Moist oral mucosa Neck nontender, supple Respiratory exam: Questionable crepitation and right lower lung. Left side normal breath sounds Cardiovascular exam: Regular rate and rhythm, no systolic murmur Abdominal exam: Soft, mild diffuse tender especially left upper quadrant- started after initiating long-acting insulin Trulicity, nondistended, positive bowel sounds Extremities exam: No calf tenderness, no pedal edema Present: Skin- warm, dry, intact Neurological exam: Alert, awake, oriented 3, CN II-XII intact, No facial droop. Normal speech. Patient is wheelchair bound. Internal Medicine: Result - Labs CBC & Chem 7: 12/01/17 08:03 12/01/17 01:25 Labs: Short CBC 12/01/17 12/01/17 Range/Units 01:25 08:03 WBC 9.2 (4.3-11.1) K/mcL Hgb 8.3 L 8.6 L (11.5-15.4) g/dL Hct 29.6 L 31.0 L (35.3-44.9) % Plt Count 305 (140-400) K/mcL Neutrophils # 6.2 (1.6-8.9) K/mcL BMP 12/01/17 01:25 Sodium 138 Potassium 3.8 Chloride 107 Carbon Dioxide 26 BUN 8 Creatinine 0.66 Glucose 326 H Calcium 8.6 Cardiac Enzymes 12/01/17 Range/Units 05:57 Troponin I < 0.03 (< 0.04) ng/mL Liver Function 12/01/17 Range/Units 01:25 Total Bilirubin 0.3 (0.3-1.0) mg/dL AST 9 L (13-39) Units/L ALT 10 (7-52) Units/L Alkaline Phosphatase 79 (34-104) Units/L Albumin 3.6 (3.5-5.7) g/dL - ABG Interpretation ABG results: PT/INR, D-dimer PT 11.1 Seconds (9.4-12.1) 12/01/17 01:25 - VTE Documentation of Mechanical Device: Intermittent pneumatic compression device Consult Discharge Plan - Plan Referrals: Merlyn Pendleton MD [Primary Care Provider] -
[2017-12-01 13:11] LABS: Amylase 14 Units/L (29-103); Lipase 18 Units/L (11-82)
[2017-12-01] MEDS: Levofloxacin 750 MG/150 ML 750 MG/150 ML BAG IVPB SCH (15:44)
[2017-12-01] MEDS: lamoTRIgine 100 MG TABLET PO SCH ×2 (17:45→22:47)
[2017-12-01] MEDS: Topiramate 100 MG TABLET PO SCH ×2 (17:46→22:32)
[2017-12-01] MEDS: CLOBAZAM 10 MG PO SCH ×2 (18:00→22:35)
[2017-12-01] MEDS ORDERED: CLOBAZAM 10 MG PO SCH (21:00)
[2017-12-01] MEDS: PERAMPANEL 2 MG PO SCH (22:35)
[2017-12-01] MEDS: RUFINAMIDE 200 MG PO SCH (22:36)
[2017-12-02] MEDS ORDERED: *HR* LORazepam 2 MG/ML VIAL IVP PRN (02:02)
[2017-12-02] MEDS: Pantoprazole 40 MG VIAL IVP SCH (06:30)
[2017-12-02 06:38] LABS: Basophils % 0.6 %
[2017-12-02 06:39] LABS: Eosinophils # 0.3 K/mcL (0.0-0.6); Eosinophils % 4.7 %; Hematocrit 29.2 % (35.3-44.9); Hemoglobin 8.1 g/dL (11.5-15.4); Immature Granulocytes % 2.5 % (0-4); Lymphocytes % 27.4 %; Mean Corpuscular HGB Conc 27.7 g/dL (31.6-35.5); Mean Corpuscular Hemoglobin 21.2 pg (28.0-33.3); Mean Corpuscular Volume 76.4 fL (83.0-100.0); Mean Platelet Volume 8.3 fL (9.4-12.4); Monocytes # 0.2 K/mcL (0.0-1.3); Monocytes % 3.3 %; Neutrophils # 4.4 K/mcL (1.6-8.9); Platelet Count 314 K/mcL (140-400); Red Blood Count 3.82 M/mcL (3.82-4.97); Red Cell Distribution Width 20.1 % (11.5-14.5); Segmented Neutrophils % 61.5 %
[2017-12-02 07:00] LABS: BUN/Creatinine Ratio 12 (6-26); Blood Urea Nitrogen 8 mg/dL (6-20); Calcium 8.5 mg/dL (8.6-10.3); Carbon Dioxide 26 mEq/L (23-29); Chloride 109 mEq/L (98-107); Glucose 370 mg/dL (70-105); Osmolality,Calculated 299 (280-300); Potassium 4.3 mEq/L (3.5-5.1); Sodium 138 mEq/L (136-145); eGFR For Non-African Americans > 60 (> 60)
[2017-12-02 07:07] LABS: Anisocytosis 2+ (Not Present)
[2017-12-02 07:08] LABS: Hypochromasia Present (Not Present); Microcytosis Present (Not Present); Platelet Estimate Normal (Normal)
[2017-12-02] MEDS: Insulin LISPRO 300 UNITS/3 ML VIAL SQ SCH ×3 (08:37→17:20)
[2017-12-02] MEDS: Aspirin Enteric Coated 81 MG Tablet PO SCH (08:40)
[2017-12-02] MEDS: Sennosides 8.6 MG TABLET PO SCH ×2 (08:40→21:24)
[2017-12-02] MEDS: Loratadine 10 MG TABLET PO SCH (08:40)
[2017-12-02] MEDS: Topiramate 100 MG TABLET PO SCH ×3 (08:41→21:24)
[2017-12-02] MEDS: Cholecalciferol (D-3) 1,000 UNIT TABLET PO SCH (08:41)
[2017-12-02] MEDS: Folic Acid 1 MG TABLET PO SCH (08:41)
[2017-12-02] MEDS: RUFINAMIDE 200 MG PO SCH ×2 (08:42→21:25)
[2017-12-02] MEDS: CLOBAZAM 10 MG PO SCH ×3 (08:43→21:26)
[2017-12-02] MEDS: PERAMPANEL 2 MG PO SCH ×2 (08:46→21:25)
[2017-12-02] MEDS: lamoTRIgine 100 MG TABLET PO SCH ×3 (08:54→21:24)
[2017-12-02] MEDS: Levofloxacin 750 MG/150 ML 750 MG/150 ML BAG IVPB SCH (09:03)
--- NOTE | 2017-12-02 11:53 | Internal Med Progress Note ---
Date of Encounter: 12/02/17 Time of Encounter: 11:53 - Assessment and plan (1) Acute respiratory failure with hypoxia Current Visit: Yes Status: Acute Assessment and plan: Patient with asthma and BRANDY presents with low oxygen saturations ranging between 75% and 88%. It could be multifactorial due to underlying asthma, severe sleep disorder on BiPAP and anemia with possible pneumonia. CXR revealed Pulmonary vascular congestion butChest CTA revealed No evidence of pulmonary embolism or acute pulmonary abnormality. Suspicion for underlying pneumonia due to possible aspiration after having the seizure therefore empiric antibiotic is started along with nebulization, incentive spirometry and oxygen supplementation. Continue BiPAP in the night. (2) Diastolic CHF Current Visit: Yes Status: Acute Assessment and plan: Newly diagnosed on echo-preserved LV function EF 60-65%, borderline pulmonary hypertension, indeterminate diastolic dysfunction. Patient takes Lasix intermittently on OPD basis as prescribed by PCP. Will also order BNP. Stopped IV fluid. Initial Chest x-ray with vascular congestion. Will repeat chest x-ray tomorrow. Qualifiers: Heart failure chronicity: unspecified Qualified Code(s): I50.30 - Unspecified diastolic (congestive) heart failure (3) Elevated lactic acid level Current Visit: No Status: Chronic Assessment and plan: Possible sepsis. Initially has low blood pressure with slight tachycardia, normal white count but elevated Lactic acid level . Patient also had hypoxic events. High possibility for aspiration pneumonia based on recent seizure episode and initially crepitation on the right side though chest x-ray and CT chest did not comment on it. Blood culture, urine culture report is awaited. Continue Levaquin. Today lung sounds better, better blood pressure and no tachycardia. (4) History of leukemia Current Visit: No Status: Chronic Assessment and plan: Outpatient management as per PCP. In remission (5) Anemia, iron deficiency Current Visit: Yes Status: Acute Assessment and plan: 42-year-old female with occasional vaginal bleeding that has decreased over the past few days-managed by PCP and PROVIDER ENGAGEMENT EXECUTIVE on OPD basis as per family. Patient has iron deficiency anemia therefore taking iron supplementation orally. Patient had history of iron infusion in the past with the last infusion 1 year ago. Negative stool occult. Last year hemoglobin level around 10 but no recent hemoglobin level available. Iron study ordered with low iron. Ferritin level also ordered. Will consider iron infusion. Anemia could be also contributing the hypoxia . Continue PPI. Qualifiers: Iron deficiency anemia type: chronic blood loss Qualified Code(s): D50.0 - Iron deficiency anemia secondary to blood loss (chronic) (6) History of CVA (cerebrovascular accident) Current Visit: No Status: Chronic Assessment and plan: Patient with mild cognitive delay status post previous CVA. CT head with no acute finding. Back to almost baseline mental status as per family. (7) Asthma Current Visit: Yes Status: Chronic Assessment and plan: Not in acute exacerbation he did continue home medicine Qualifiers: Asthma severity: mild Asthma persistence: persistent Asthma complication type: uncomplicated Qualified Code(s): J45.30 - Mild persistent asthma, uncomplicated (8) History of seizures Current Visit: No Status: Chronic Assessment and plan: Questionable seizure last night. Consulted neurologist. Seizure, aspiration and fall precaution. Chronic recurrent even on anti-seizure medicine. Patient follow neurologists at [facility] who is aware. Continue home meds (9) Obesity (BMI 30-39.9) Current Visit: No Status: Chronic Assessment and plan: Diet and exercise (10) DM type 2 (diabetes mellitus, type 2) Current Visit: Yes Status: Chronic Assessment and plan: Hemoglobin A1c 8.5.Continue Accu-Cheks every 6 hours. High blood glucose level therefore changed to high-dose SSI and is started 10 unit of long-acting insulin. Continue close monitoring. Diabetic diet Qualifiers: Diabetes mellitus superintendent container terminal insulin use: without superintendent container terminal use Diabetes mellitus complication status: without complication Qualified Code(s): E11.9 - Type 2 diabetes mellitus without complications (11) BRANDY on CPAP Current Visit: Yes Status: Chronic Assessment and plan: Continue CPAP at bedtime (12) DVT prophylaxis Current Visit: Yes Status: Acute Assessment and plan: EPCDs - Time Spent With Patient Total time spent is greater than 50% in coordination of care (as documented) at patient's floor/unit and/or counseling patient: Greater than 35 minutes (Is spent more than 35 minute inpatient care, communication with nursing list of family and clinical program consultant) - Subjective Interval history: no hypoxic event since admission but patient had questionable seizure last night as per nursing staff. Family at bedside. Review the lab Denies fever chills vomiting headache dizziness chest pain. Patient feels tired , nausea, intermittent shortness of breath. Denies urinary or bowel complaint. - Constitutional Vitals: Temp Pulse Resp BP Pulse Ox 97.9 F 80 22 110/73 98 12/02/17 11:12 12/02/17 11:12 12/02/17 11:12 12/02/17 11:12 12/02/17 11:12 General appearance: Present: cooperative, pleasant, no acute distress, obese, answers questions appropriately Exam: General appearance: No acute distress, A&O X 3. Bedridden patient. Family at bedside. Obese Head exam: Atraumatic Eye exam: EOMI, PERRLA ENT exam: Moist oral mucosa Neck nontender, supple Respiratory exam: Clear to auscultation bilaterally but diminished sound that could be due to body habitus Cardiovascular exam: Regular rate and rhythm, no systolic murmur Abdominal exam: Soft, nontender, nondistended, positive bowel sounds Extremities exam: No calf tenderness, no pedal edema Present: Skin-, warm, dry, intact Neurological exam: Grossly CN II-XII intact, No facial droop. Normal speech. Normal strength upper extremity bilateral. Wheelchair-bound patient unable to walk Internal Medicine: Result - Labs CBC & Chem 7: 12/02/17 06:28 12/02/17 06:28 Labs: Short CBC 12/02/17 Range/Units 06:28 WBC 7.2 (4.3-11.1) K/mcL Hgb 8.1 L (11.5-15.4) g/dL Hct 29.2 L (35.3-44.9) % Plt Count 314 (140-400) K/mcL Neutrophils # 4.4 (1.6-8.9) K/mcL BMP 12/02/17 06:28 Sodium 138 Potassium 4.3 Chloride 109 H Carbon Dioxide 26 BUN 8 Creatinine 0.67 Glucose 370 H Calcium 8.5 L Cardiac Enzymes 12/01/17 Range/Units 05:57 Troponin I < 0.03 (< 0.04) ng/mL - ABG Interpretation ABG results: PT/INR, D-dimer PT 11.1 Seconds (9.4-12.1) 12/01/17 01:25 - Impressions Impressions Echocardiogram 12/01/17 00:50 Impressions: LVEF 60-65%. Indeterminate diastolic function. Normal right ventricular structure and function. Mild tricuspid regurgitation. Borderline pulmonary hypertension by TR gradient. IVC not well visualized. Left Ventricular Wall Motion: Rest Echo Findings All wall segments showed normal motion. Findings: Study Quality * Technically adequate exam. ECG Findings * Normal sinus rhythm. Left Ventricle * LVEF 60-65%. * Normal LV chamber size, wall thickness and function. * Indeterminate diastolic function. Right Ventricle * Normal right ventricular structure and function. Left Atrium * Normal left atrial size. Right Atrium * Normal right atrial size. Mitral Valve * Normal mitral valve structure. * No mitral stenosis. * No mitral regurgitation. Aortic Valve * Trileaflet aortic valve. * No aortic regurgitation. * No aortic stenosis. Tricuspid Valve * Tricuspid valve not well visualized. * Mild tricuspid regurgitation. Pulmonic Valve * Pulmonic valve is not well visualized. * No pulmonic stenosis. * Trace pulmonic regurgitation. Pulmonary Artery * Pulmonary artery not well visualized. Aorta * Normally sized aortic root. Pericardium * There is no pericardial effusion present. Interatrial Septum * No evidence of PFO by color Doppler. IVC * The IVC is not well evaluated. - VTE Documentation of Mechanical Device: Intermittent pneumatic compression device Consult Discharge Plan - Plan Referrals: Merlyn Pendleton MD [Primary Care Provider] -
[2017-12-02 12:38] LABS: Ferritin 8 ng/mL (10-120)
[2017-12-02] MEDS ORDERED: Insulin DETEMIR 100 UNIT/ML X5UNITS SQ SCH (21:00)
[2017-12-03 04:55] LABS: Nucleated Red Blood Cells 0.2 /100 WBC (0); Segmented Neutrophils % 67.2 %
[2017-12-03 04:57] LABS: Basophils # 0.1 K/mcL (0.0-0.2); Basophils % 0.5 %; Eosinophils # 0.5 K/mcL (0.0-0.6); Eosinophils % 4.1 %; Hematocrit 30.3 % (35.3-44.9); Hemoglobin 8.3 g/dL (11.5-15.4); Immature Granulocytes % 1.8 % (0-4); Lymphocytes # 2.5 K/mcL (0.6-4.6); Lymphocytes % 23.2 %; Mean Corpuscular HGB Conc 27.4 g/dL (31.6-35.5); Mean Corpuscular Hemoglobin 20.5 pg (28.0-33.3); Mean Corpuscular Volume 74.8 fL (83.0-100.0); Mean Platelet Volume 8.7 fL (9.4-12.4); Monocytes # 0.4 K/mcL (0.0-1.3); Monocytes % 3.2 %; Neutrophils # 7.3 K/mcL (1.6-8.9); Platelet Count 353 K/mcL (140-400); Red Blood Count 4.05 M/mcL (3.82-4.97); Red Cell Distribution Width 20.4 % (11.5-14.5)
[2017-12-03 05:15] LABS: Hypochromasia Present (Not Present); Platelet Estimate Normal (Normal)
[2017-12-03 05:16] LABS: BUN/Creatinine Ratio 14 (6-26); Blood Urea Nitrogen 8 mg/dL (6-20); Calcium 9.3 mg/dL (8.6-10.3); Carbon Dioxide 25 mEq/L (23-29); Chloride 105 mEq/L (98-107); Glucose 253 mg/dL (70-105); Osmolality,Calculated 289 (280-300); Polychromasia 1+ (Not Present); Potassium 3.9 mEq/L (3.5-5.1); Sodium 136 mEq/L (136-145); Stomatocytes 1+ (Not Present); eGFR For Non-African Americans > 60 (> 60)
[2017-12-03] MEDS: Insulin LISPRO 300 UNITS/3 ML VIAL SQ SCH ×3 (07:47→16:32)
[2017-12-03] MEDS: Topiramate 100 MG TABLET PO SCH ×3 (08:22→21:04)
[2017-12-03] MEDS: Loratadine 10 MG TABLET PO SCH (08:23)
[2017-12-03] MEDS: Cholecalciferol (D-3) 1,000 UNIT TABLET PO SCH (08:23)
[2017-12-03] MEDS: Folic Acid 1 MG TABLET PO SCH (08:23)
[2017-12-03] MEDS: Aspirin Enteric Coated 81 MG Tablet PO SCH (08:23)
[2017-12-03] MEDS: Sennosides 8.6 MG TABLET PO SCH ×2 (08:23→21:03)
[2017-12-03] MEDS: PERAMPANEL 2 MG PO SCH ×2 (08:26→21:05)
[2017-12-03] MEDS: RUFINAMIDE 200 MG PO SCH ×2 (08:29→21:05)
[2017-12-03] MEDS: CLOBAZAM 10 MG PO SCH (08:31)
[2017-12-03] MEDS: Levofloxacin 750 MG/150 ML 750 MG/150 ML BAG IVPB SCH (08:35)
[2017-12-03] MEDS: lamoTRIgine 100 MG TABLET PO SCH ×3 (08:49→21:03)
[2017-12-03] MEDS ORDERED: Pantoprazole 40 MG VIAL IVP SCH (09:00)
--- NOTE | 2017-12-03 09:30 | Neurology - Consult Note ---
Date of Encounter: 12/03/17 Time of Encounter: 07:20 Assessment and Plan (1) Hypoxia Current Visit: Yes Status: Acute (2) BRANDY on CPAP Current Visit: Yes Status: Chronic (3) Refractory idiopathic generalized epilepsy Current Visit: Yes Status: Acute This patient who has an history of mild cognitive impairment with the refractory idiopathic generalized epilepsy has been on multiple seizure medications and continued to have these breakthrough seizures. Currently she did have a seizure earlier which is likely could be due to hypoxemia and at the same time it could be due to underlying infection or metabolic disturbance. Currently she seems to be stable. At the moment I would not recommend taking any changes in her seizure medication as anytime the seizure medication adjusted patient started having more breakthrough seizures. I would recommend that we should treat underlying hypoxia any infection or any metabolic disturbance if she had any breakthrough seizures that could be treated with Ativan on when necessary basis. Currently she is on Topamax, lamotrigine, ONIFI, Banzel, FYCOMPA. I suggested that she should continue on the same dose without any introduction. It is quite important that patient should continue on the same dose that she is at home otherwise she is at high risk for breakthrough seizures that could be very difficult to manage. Once she is stabilized and her hypoxia was better she could be discharged with follow-up with her neurologist in [place]. Discussed with the family in detail agrees with the plan History of Present Illness HPI: Ms. Galicia is a 42 year old female wiith a past medical history of leukemia, diabetes mellitus type 2, asthma, BRANDY with CPAP , refractory epilepsy, and cognitive delay presents from home secondary to low oxygen saturations ranging between 75% and 88%. Patient reports history of chronic anemia, fatigue, chronic sharp, non- radiating anterior chest wall tenderness, and occasional vaginal bleeding that has decreased over the past few days. Patient recently completed treatment for UTI with Macrobid but describes ongoing dysuria. She denies fever, chills, nausea, vomiting, diarrhea. Patient is known to me from previous office visits has a history of refractory epilepsy continued to have breakthrough seizures despite being on 5 different antiepileptic medication currently she is been seeing up in [place] by epilepsy specialist. She did have a seizure earlier with the possibility that she may have desaturated and also may have caused some aspiration pneumonia she is been treated with antibiotics. She did not have any further seizures since she is been in the hospital Past Med Surg Social Fam HX - Past Medical History Medical history: CVA, diabetes, GERD, seizures, thyroid disease, other Psychiatric history: no psych history - Past Surgical History Surgical History: orthopedic, other (Right knee replacement) - Social History Smoking Status: Never smoker Smokeless Tobacco Status: No Alcohol use: none Drug use: none - Family History Mother Hx Family Cardiac Disorders: Yes (Hypertension) Hx Family Endocrine Disorder: Yes (Diabetes) Father Hx Family Cardiac Disorders: Yes (Hypertension) Hx Family Endocrine Disorder: Yes (Diabetes) Medications and Allergies Aspirin Enteric Coated [Aspirin EC] 81 mg PO DAILY 11/30/17 [History] Buspirone HCl [Buspar] 15 mg PO TID PRN 11/30/17 [History] Cetirizine HCl [Cetirizine HCl] 10 mg PO DAILY 11/30/17 [History] Cholecalciferol (Vitamin D3) [Vitamin D3] 2,000 unit PO DAILY 11/30/17 [History] Clobazam [Onfi] 20 mg PO BID 11/30/17 [History] Docusate [Colace] 100 mg PO BID 11/30/17 [History] Dulaglutide [Trulicity] 0.75 mg SQ QWEEK 11/30/17 [History] Ferrous Sulfate [Ferrous Sulfate] 325 mg PO BID 11/30/17 [History] Folic Acid [Folic Acid] 1 mg PO DAILY 11/30/17 [History] Ibuprofen [Ibuprofen] 800 mg PO Q8H PRN 11/30/17 [History] Levothyroxine Sodium 88 mcg PO DAILY 11/30/17 [History] Metformin HCl [Fortamet] 1,000 mg PO BID 11/30/17 [History] Nateglinide [Starlix] 120 mg PO TIDWM 11/30/17 [History] Nitrofurantoin [Macrodantin] 50 mg PO DAILY 11/30/17 [History] Omeprazole [PriLOSEC] 40 mg PO BID 11/30/17 [History] Perampanel [Fycompa] 4 mg PO BID 11/30/17 [History] Potassium Chloride 20 meq PO BID 11/30/17 [History] Rufinamide [Banzel] 800 mg PO BID 11/30/17 [History] Sennosides [Senna] 8.6 mg PO BID 11/30/17 [History] Topiramate [Topamax] 300 mg PO QAM 11/30/17 [History] Topiramate [Topamax] 400 mg PO QPM 11/30/17 [History] cephALEXin [Keflex] 500 mg PO Q6H 11/30/17 [History] hydroCHLOROthiazide [Hydrochlorothiazide] 12.5 mg PO DAILY PRN 11/30/17 [History ] lamoTRIgine [Lamictal] 200 mg PO QAM 11/30/17 [History] lamoTRIgine [Lamictal] 300 mg PO QPM 11/30/17 [History] 3 Allergy/AdvReac Type Severity Reaction Status Date / Time Sulfa (Sulfonamide AdvReac Mild Nausea Verified 11/30/17 20:03 Antibiotics) All Systems: The remainder of the systems were reviewed and are negative Physical Examination - Vital Signs Vital Signs: Initial Vital Signs Temp Pulse Resp BP Pulse Ox 98 F 92 20 123/77 92 11/30/17 16:11 11/30/17 16:11 11/30/17 16:11 11/30/17 16:11 11/30/17 16:11 - Constitutional General appearance: comfortable - Neurologic Sensorimotor examination: intact Detailed motor examination: grossly full strength in all extremities Reflex and gait examination: intact Reflexes: Biceps: 1+, Triceps: 1+, Brachioradialis: 1+, Patella: 1+, Achilles: 1 + Mental Status Examination: awake, alert, oriented to person, oriented to place, oriented to time, follows commands appropriately, answers questions appropriately, follows simple commands, localizes noxious stimulation, cognitive impairment Cranial nerve examination: PERRL, EOMI, visual aparicio intact, no facial asymmetry is present Cerebellar examination: no dysmetria Results - Laboratory Findings CBC and BMP: 12/03/17 04:30 12/03/17 04:30 Abnormal lab findings: Abnormal lab results Hgb 8.3 g/dL (11.5-15.4) L 12/03/17 04:30 Hct 30.3 % (35.3-44.9) L 12/03/17 04:30 MCV 74.8 fL (83.0-100.0) L 12/03/17 04:30 MCH 20.5 pg (28.0-33.3) L 12/03/17 04:30 MCHC 27.4 g/dL (31.6-35.5) L 12/03/17 04:30 RDW 20.4 % (11.5-14.5) H 12/03/17 04:30 MPV 8.7 fL (9.4-12.4) L 12/03/17 04:30 Nucleated RBCs/100 WBC 0.2 /100 WBC (0) H 12/03/17 04:30 Large Platelets Present (Not Present) A 12/01/17 01:25 Polychromasia 1+ (Not Present) A 12/03/17 04:30 Hypochromasia Present (Not Present) A 12/03/17 04:30 Anisocytosis 2+ (Not Present) A 12/02/17 06:28 Microcytosis Present (Not Present) A 12/02/17 06:28 Macrocytosis Present (Not Present) A 12/01/17 01:25 Tear Drop Cells 1+ (Not Present) A 12/01/17 01:25 Stomatocytes 1+ (Not Present) A 12/03/17 04:30 Creatinine 0.59 mg/dL (0.60-1.20) L 12/03/17 04:30 Glucose 253 mg/dL (70-105) H 12/03/17 04:30 POC Glucose 219 mg/dL (70-99) H 12/02/17 20:47 Hemoglobin A1c 8.5 % (-5.6) H 12/01/17 01:25 Iron 14 mcg/dL (50-170) L 11/30/17 16:57 % Saturation 3 % (15-50) L 11/30/17 16:57 Transferrin 393 mg/dL (203-362) H 11/30/17 16:57 Ferritin 8 ng/mL (10-120) L 12/02/17 06:28 AST 9 Units/L (13-39) L 12/01/17 01:25 Triglycerides 398 mg/dL (< 150) H 12/01/17 01:25 VLDL Cholesterol, Calc 80 mg/dL (< 31) H 12/01/17 01:25 HDL Cholesterol 18 mg/dL (40-59) L 12/01/17 01:25 Cholesterol/HDL Ratio 7.2 (0-4.9) H 12/01/17 01:25 Amylase 14 Units/L (29-103) L 12/01/17 05:57 Ur Specific [place] 1.030 (1.010-1.025) H 11/30/17 20:00 Consult Discharge Plan - Plan Referrals: Merlyn Pendleton MD [Primary Care Provider] -
--- NOTE | 2017-12-03 09:45 | Internal Med Progress Note ---
Date of Encounter: 12/03/17 Time of Encounter: 09:43 - Assessment and plan (1) Acute respiratory failure with hypoxia Current Visit: Yes Status: Acute Assessment and plan: Patient with asthma and BRANDY presents with low oxygen saturations ranging between 75% and 88%. It could be multifactorial due to underlying asthma, severe sleep disorder on BiPAP and anemia with possible pneumonia. CXR revealed Pulmonary vascular congestion butChest CTA revealed No evidence of pulmonary embolism or acute pulmonary abnormality. Suspicion for underlying pneumonia due to possible aspiration after having the seizure therefore empiric antibiotic Levaquin is started along with nebulization, incentive spirometry and oxygen supplementation. Continue BiPAP while sleeping. Patient needs to follow with her pulmonologists on OPD basis for BiPAP adjustment if needed. Chest x-ray is a schedule today but not done yet. (2) Diastolic CHF Current Visit: Yes Status: Acute Assessment and plan: Newly diagnosed on echo-preserved LV function EF 60-65%, borderline pulmonary hypertension, indeterminate diastolic dysfunction. Patient takes Lasix intermittently on OPD basis as prescribed by PCP. Normal BNP. Does not appear in CHF exacerbation. Stopped IV fluid. Initial Chest x-ray with vascular congestion. Qualifiers: Heart failure chronicity: unspecified Qualified Code(s): I50.30 - Unspecified diastolic (congestive) heart failure (3) Elevated lactic acid level Current Visit: No Status: Chronic Assessment and plan: Possible sepsis. Initially has low blood pressure with slight tachycardia, normal white count but elevated Lactic acid level . Patient also had hypoxic events. High possibility for aspiration pneumonia based on recent seizure episode and initially crepitation on the right side though chest x-ray and CT chest did not comment on it. Blood culture, urine culture with no growth yet. Continue Levaquin. (4) History of leukemia Current Visit: No Status: Chronic Assessment and plan: In remission. (5) Anemia, iron deficiency Current Visit: Yes Status: Acute Assessment and plan: Iron deficiency. Iron study ordered. Will start IV iron infusion 100 mg daily while in the hospital. Patient has been following cafeteria attendant and had history of multiple iron infusion in the past the last infusion 1 year ago Qualifiers: Iron deficiency anemia type: chronic blood loss Qualified Code(s): D50.0 - Iron deficiency anemia secondary to blood loss (chronic) (6) History of CVA (cerebrovascular accident) Current Visit: No Status: Chronic Assessment and plan: Patient with mild-moderate cognitive delay status post previous CVA. CT head with no acute finding. (7) Asthma Current Visit: Yes Status: Chronic Assessment and plan: Not in acute exacerbation. Continue home medicine Qualifiers: Asthma severity: mild Asthma persistence: persistent Asthma complication type: uncomplicated Qualified Code(s): J45.30 - Mild persistent asthma, uncomplicated (8) History of seizures Current Visit: No Status: Chronic Assessment and plan: Chronic. Has been under care of neurologist at [facility]. Consulted neurologists during this admission who advised to continue same regime as has been taking at home. Seizure, fall precaution. (9) Obesity (BMI 30-39.9) Current Visit: No Status: Chronic Assessment and plan: Diet and exercise (10) DM type 2 (diabetes mellitus, type 2) Current Visit: Yes Status: Chronic Assessment and plan: Hemoglobin A1c 8.5.Continue Accu-Cheks every 6 hours. High blood glucose level therefore continue high-dose SSI and increased 12 unit of long-acting insulin. Continue close monitoring. Diabetic diet Qualifiers: Diabetes mellitus long wall shear operator insulin use: without long wall shear operator use Diabetes mellitus complication status: without complication Qualified Code(s): E11.9 - Type 2 diabetes mellitus without complications (11) BRANDY on CPAP Current Visit: Yes Status: Chronic Assessment and plan: Severe sleep disorder. Patient desaturated significantly in 70s while sleeping and without CPAP machine. It was advised to use consistently while on sleep. Follow with pulmonologists on OPD basis (12) DVT prophylaxis Current Visit: Yes Status: Acute Assessment and plan: SCDs - Time Spent With Patient 25 - 35 minutes - Subjective Interval history: no hypoxic event since admission while awake but her oxygen level dropped down when he sleeps due to underlying severe sleep disorder. No seizure activity overnight. Mother at bedside. Review the lab with a stable hemoglobin, low ferritin and low serum iron. Denies fever chills nausea vomiting headache dizziness chest pain, shortness of breath. Denies urinary or bowel complaint. - Constitutional Vitals: Temp Pulse Resp BP Pulse Ox 98.0 F 94 19 100/64 93 12/03/17 07:36 12/03/17 07:36 12/03/17 07:36 12/03/17 07:36 12/03/17 07:36 General appearance: Present: cooperative, pleasant, no acute distress, obese, answers questions appropriately Exam: General appearance: No acute distress, A&O X 3. Bedridden patient. Family at bedside. Morbid Obese Head exam: Atraumatic Eye exam: EOMI, PERRLA ENT exam: Moist oral mucosa Neck nontender, supple Respiratory exam: Clear to auscultation bilaterally but diminished sound that could be due to body habitus Cardiovascular exam: Regular rate and rhythm, no systolic murmur Abdominal exam: Soft, nontender, nondistended, positive bowel sounds Extremities exam: No calf tenderness, no pedal edema Present: Skin-, warm, dry, intact Neurological exam: Grossly CN II-XII intact, No facial droop. Normal speech. Normal strength upper extremity bilateral. Wheelchair-bound patient unable to walk Internal Medicine: Result - Labs CBC & Chem 7: 12/03/17 04:30 12/03/17 04:30 Labs: Short CBC 12/03/17 Range/Units 04:30 WBC 10.9 D (4.3-11.1) K/mcL Hgb 8.3 L (11.5-15.4) g/dL Hct 30.3 L (35.3-44.9) % Plt Count 353 (140-400) K/mcL Neutrophils # 7.3 (1.6-8.9) K/mcL BMP 12/03/17 04:30 Sodium 136 Potassium 3.9 Chloride 105 Carbon Dioxide 25 BUN 8 Creatinine 0.59 L Glucose 253 H Calcium 9.3 - ABG Interpretation ABG results: PT/INR, D-dimer PT 11.1 Seconds (9.4-12.1) 12/01/17 01:25 - VTE Documentation of Mechanical Device: Intermittent pneumatic compression device Consult Discharge Plan - Plan Referrals: Merlyn Pendleton MD [Primary Care Provider] -
[2017-12-03] MEDS: Clobazam [Onfi] 10 MG PO SCH ×2 (10:04→14:51)
--- NOTE | 2017-12-03 12:32 | Pulmonology Consult Note ---
<Elkin Weiner - Last Filed: 12/03/17 13:20> Date of Encounter: 12/03/17 Time of Encounter: 12:31 Assessment and Plan (1) Acute on chronic respiratory failure with hypoxemia Current Visit: Yes Status: Acute Patient presented with episodic hypoxia. This is likely multifactorial secondary to obesity hypoventilation, asthma, and obstructive sleep apnea. The patient also has a history of seizures and these episodes could coincide. She is also being worked up for aspiration pneumonia secondary to seizure. -The patient is already on BiPAP at night at home, this likely needs to be titrated and re-evaluated for mask fit for night time use. The patient/family should also be educated on BiPAP use during the day for napping. -She seldom utilizes her PRN albuterol and her asthma is likely mild persistent and well managed PRN -The patient does not have any abnormal vitals or a white count, no sputum production, fever or chills, and I do not think her symptoms are infectious in nature -Blood Gas pending and symbicort ordered for symptom relief -Echocardiogram this admission showed mild diastolic heart failure, this could be contributing to respiratory failure and is being managed by primary team -This patient would benefit from outpatient follow up to evaluate spirometry and BiPAP titration/education (2) Obstructive sleep apnea Current Visit: Yes Status: Acute The patient utilizes BiPAP nightly, I believe there is also a component of Obesity Hypoventilation Syndrome which will be managed similarly - Recommend BiPAP titration and mask fit outpatient - Recommend education on use during daytime naps -Recommend evaluation for daytime outpatient oxygen use (3) Obesity hypoventilation syndrome Current Visit: Yes Status: Acute Patient and mother educated about obesity hypoventilation and cause by body habitus, mother states patient has recently lost weight but still suffers with orthopnea, this can be managed with increased weight loss and sleep posture, as well as continued BiPAP use (4) Asthma Current Visit: Yes Status: Chronic Patient is having symptoms 1-2 times per week, requiring albuterol inhaler use 1 -2 times per week, with few night time awakenings, and no exacerbations requiring steroids or hospitalization. We started Symbicort here which can be continued until outpatient management is established, sleep study has also been ordered for outpatient follow up. Other de la o her mild persistent asthma is well controlled with PRN bronchodilator use, and can be re-evaluated outpatient Qualifiers: Asthma severity: mild Asthma persistence: persistent Asthma complication type: uncomplicated Qualified Code(s): J45.30 - Mild persistent asthma, uncomplicated (5) Elevated lactic acid level Current Visit: No Status: Resolved This was apparent at admission but has resolved, managed by primary team (6) Anemia, iron deficiency Current Visit: Yes Status: Acute Chronic anemia being managed by primary team with iron studies, her hemoglobin is currently stable Qualifiers: Iron deficiency anemia type: chronic blood loss Qualified Code(s): D50.0 - Iron deficiency anemia secondary to blood loss (chronic) (7) History of seizures Current Visit: Yes Status: Chronic Patient has history of seizures that she sees neurology for, she is being managed here on her home medications (8) DM type 2 (diabetes mellitus, type 2) Current Visit: Yes Status: Chronic Diabetes managed by primary team with sliding scale insulin Qualifiers: Diabetes mellitus prison insulin use: without lobsterman use Diabetes mellitus complication status: without complication Qualified Code(s): E11.9 - Type 2 diabetes mellitus without complications (9) Diastolic CHF Current Visit: Yes Status: Acute Assessed with echocardiogram, newly diagnosed acute diastolic heart failure, managed by primary team Qualifiers: Heart failure chronicity: unspecified Qualified Code(s): I50.30 - Unspecified diastolic (congestive) heart failure History of Present Illness Consult date: 12/03/17 Requesting physician: Conchis Smalls Reason for consult: hypoxemia Chief complaint: Hypoxia History of present illness: Ms. Galicia is a 42 y/o female with a past medical history of leukemia in remission, diabetes mellitus type 2, asthma, BRANDY, seizures, cognitive delay, CVA , GERD, and thyroid disease who presented for episodes of hypoxemia. Historian is mainly the mother in the room. The patient uses BiPAP at night but does not use oxygen during the day, and her BiPAP has not been titrated in several years. She has albuterol inhaler and nebulizer PRN for her asthma which she apparently only uses 1-2 times per week for symptoms. She has never smoked and has never been exposed to respiratory irritants. Apparently the patient has chronically had issues with low oxygen saturation at night due to BRANDY but recently had several episodes of O2 sats in the 70s and low 80s while awake and alert. The mother brought the patient and and she was admitted for acute respiratory failure with hypoxia. Chest XRay showed evidence for pulmonary vascular congestion but chest CTA showed no acute process or pulmonary abnormality. She was treated with bronchodilators and continued BiPAP at night. She was also treated for iron deficiency anemia. Since admission the patient reportedly had a seizure and was at risk for aspiration. The patient was started on empiric antibiotics. Past Med Surg Social Fam HX - Past Medical History Medical history: CVA, diabetes, GERD, seizures, thyroid disease, other Psychiatric history: no psych history - Past Surgical History Surgical History: orthopedic, other (Right knee replacement) - Social History Smoking Status: Never smoker Smokeless Tobacco Status: No Alcohol use: none Drug use: none - Family History Mother Hx Family Cardiac Disorders: Yes (Hypertension) Hx Family Endocrine Disorder: Yes (Diabetes) Father Hx Family Cardiac Disorders: Yes (Hypertension) Hx Family Endocrine Disorder: Yes (Diabetes) Medications and Allergies Aspirin Enteric Coated [Aspirin EC] 81 mg PO DAILY 11/30/17 [History] Buspirone HCl [Buspar] 15 mg PO TID PRN 11/30/17 [History] Cetirizine HCl [Cetirizine HCl] 10 mg PO DAILY 11/30/17 [History] Cholecalciferol (Vitamin D3) [Vitamin D3] 2,000 unit PO DAILY 11/30/17 [History] Clobazam [Onfi] 20 mg PO BID 11/30/17 [History] Docusate [Colace] 100 mg PO BID 11/30/17 [History] Dulaglutide [Trulicity] 0.75 mg SQ QWEEK 11/30/17 [History] Ferrous Sulfate [Ferrous Sulfate] 325 mg PO BID 11/30/17 [History] Folic Acid [Folic Acid] 1 mg PO DAILY 11/30/17 [History] Ibuprofen [Ibuprofen] 800 mg PO Q8H PRN 11/30/17 [History] Levothyroxine Sodium 88 mcg PO DAILY 11/30/17 [History] Metformin HCl [Fortamet] 1,000 mg PO BID 11/30/17 [History] Nateglinide [Starlix] 120 mg PO TIDWM 11/30/17 [History] Nitrofurantoin [Macrodantin] 50 mg PO DAILY 11/30/17 [History] Omeprazole [PriLOSEC] 40 mg PO BID 11/30/17 [History] Perampanel [Fycompa] 4 mg PO BID 11/30/17 [History] Potassium Chloride 20 meq PO BID 11/30/17 [History] Rufinamide [Banzel] 800 mg PO BID 11/30/17 [History] Sennosides [Senna] 8.6 mg PO BID 11/30/17 [History] Topiramate [Topamax] 300 mg PO QAM 11/30/17 [History] Topiramate [Topamax] 400 mg PO QPM 11/30/17 [History] cephALEXin [Keflex] 500 mg PO Q6H 11/30/17 [History] hydroCHLOROthiazide [Hydrochlorothiazide] 12.5 mg PO DAILY PRN 11/30/17 [History ] lamoTRIgine [Lamictal] 200 mg PO QAM 11/30/17 [History] lamoTRIgine [Lamictal] 300 mg PO QPM 11/30/17 [History] Albuterol Neb [AccuNeb] 1.25 mg IH Q4H PRN 12/03/17 [History] Albuterol Sulfate [Albuterol Inhaler] 2 puff IH Q4H PRN 12/03/17 [History] 3 Allergy/AdvReac Type Severity Reaction Status Date / Time Sulfa (Sulfonamide AdvReac Mild Nausea Verified 11/30/17 20:03 Antibiotics) All Systems: The remainder of the systems were reviewed and are negative - Constitutional Constitutional: no chills, no fever(s), no night sweats - EENT Nose, mouth and throat: no dizziness, no dysphagia, no headache(s), no nasal congestion, no neck pain, no sinus pressure, no sore throat - Cardiovascular Cardiovascular: no chest pain, no diaphoresis, no edema, no irregular heart rhythm, no lightheadedness - Respiratory Respiratory: cough, no hemoptysis, no wheezing, no pain on inspirtation, no excessive phlegm production, no pain with cough - Gastrointestinal Gastrointestinal: no abdominal pain, no cramping, no diarrhea, no nausea, no vomiting - Musculoskeletal Musculoskeletal: no weakness, no myalgias - Neurological Neurological: no abnormal gait, no abnormal speech, no confusion, no focal weakness Physical Examination Vital Signs: Vital Signs, Last 4 Hours Temp Pulse Resp BP Pulse Ox 12/03/17 11:07 98.4 F 81 18 97/65 98 Patient in no acute distress, wearing nasal cannula Alert and oriented to person, place, and situation Heart in regular rate and rhythm without murmur or gallop Lung sounds are coarse, no wheeze, no rhonchi, no diminished lung aparicio, slight rales in left upper lung Abdomen is superficially tender due to injections, normal bowel sounds Legs non edematous, calfs non tender Results - Laboratory Findings CBC and BMP: 12/03/17 04:30 12/03/17 04:30 PT/INR, D-dimer PT 11.1 Seconds (9.4-12.1) 12/01/17 01:25 Abnormal lab findings: Abnormal lab results Hgb 8.3 g/dL (11.5-15.4) L 12/03/17 04:30 Hct 30.3 % (35.3-44.9) L 12/03/17 04:30 MCV 74.8 fL (83.0-100.0) L 12/03/17 04:30 MCH 20.5 pg (28.0-33.3) L 12/03/17 04:30 MCHC 27.4 g/dL (31.6-35.5) L 12/03/17 04:30 RDW 20.4 % (11.5-14.5) H 12/03/17 04:30 MPV 8.7 fL (9.4-12.4) L 12/03/17 04:30 Nucleated RBCs/100 WBC 0.2 /100 WBC (0) H 12/03/17 04:30 Large Platelets Present (Not Present) A 12/01/17 01:25 Polychromasia 1+ (Not Present) A 12/03/17 04:30 Hypochromasia Present (Not Present) A 12/03/17 04:30 Anisocytosis 2+ (Not Present) A 12/02/17 06:28 Microcytosis Present (Not Present) A 12/02/17 06:28 Macrocytosis Present (Not Present) A 12/01/17 01:25 Tear Drop Cells 1+ (Not Present) A 12/01/17 01:25 Stomatocytes 1+ (Not Present) A 12/03/17 04:30 Creatinine 0.59 mg/dL (0.60-1.20) L 12/03/17 04:30 Glucose 253 mg/dL (70-105) H 12/03/17 04:30 POC Glucose 219 mg/dL (70-99) H 12/02/17 20:47 Hemoglobin A1c 8.5 % (-5.6) H 12/01/17 01:25 Iron 14 mcg/dL (50-170) L 11/30/17 16:57 % Saturation 3 % (15-50) L 11/30/17 16:57 Transferrin 393 mg/dL (203-362) H 11/30/17 16:57 Ferritin 8 ng/mL (10-120) L 12/02/17 06:28 AST 9 Units/L (13-39) L 12/01/17 01:25 Triglycerides 398 mg/dL (< 150) H 12/01/17 01:25 VLDL Cholesterol, Calc 80 mg/dL (< 31) H 12/01/17 01:25 HDL Cholesterol 18 mg/dL (40-59) L 12/01/17 01:25 Cholesterol/HDL Ratio 7.2 (0-4.9) H 12/01/17 01:25 Amylase 14 Units/L (29-103) L 12/01/17 05:57 Ur Specific [place] 1.030 (1.010-1.025) H 11/30/17 20:00 - Clinical Findings Intake & Output: Intake & Output 12/02/17 12/03/17 12/03/17 23:59 07:59 15:59 Intake Total 480 / 480 Output Total 300 / 300 Balance -300 / -300 480 / 480 Weight 94.3 kg Consult Discharge Plan - Plan Referrals: Merlyn Pendleton MD [Primary Care Provider] - <Cindy Dsouza - Last Filed: 12/03/17 16:38> Date of Encounter: 12/03/17 All Systems: The remainder of the systems were reviewed and are negative Physical Examination Vital Signs: Vital Signs, Last 4 Hours Temp Pulse Resp BP Pulse Ox 12/03/17 15:53 98.6 F 80 18 98/62 97 Results - Laboratory Findings CBC and BMP: 12/03/17 04:30 12/03/17 04:30 ABG ABG pH 7.36 pH Units (7.32-7.45) 12/03/17 13:49 ABG pCO2 48 mmHg (35-45) H 12/03/17 13:49 ABG pO2 103 mmHg (85-104) 12/03/17 13:49 ABG O2 Saturation 98 % (95-98) 12/03/17 13:49 PT/INR, D-dimer PT 11.1 Seconds (9.4-12.1) 12/01/17 01:25 Abnormal lab findings: Abnormal lab results Hgb 8.3 g/dL (11.5-15.4) L 12/03/17 04:30 Hct 30.3 % (35.3-44.9) L 12/03/17 04:30 MCV 74.8 fL (83.0-100.0) L 12/03/17 04:30 MCH 20.5 pg (28.0-33.3) L 12/03/17 04:30 MCHC 27.4 g/dL (31.6-35.5) L 12/03/17 04:30 RDW 20.4 % (11.5-14.5) H 12/03/17 04:30 MPV 8.7 fL (9.4-12.4) L 12/03/17 04:30 Nucleated RBCs/100 WBC 0.2 /100 WBC (0) H 12/03/17 04:30 Large Platelets Present (Not Present) A 12/01/17 01:25 Polychromasia 1+ (Not Present) A 12/03/17 04:30 Hypochromasia Present (Not Present) A 12/03/17 04:30 Anisocytosis 2+ (Not Present) A 12/02/17 06:28 Microcytosis Present (Not Present) A 12/02/17 06:28 Macrocytosis Present (Not Present) A 12/01/17 01:25 Tear Drop Cells 1+ (Not Present) A 12/01/17 01:25 Stomatocytes 1+ (Not Present) A 12/03/17 04:30 ABG pCO2 48 mmHg (35-45) H 12/03/17 13:49 ABG Total CO2 29 mEq/L (20-26) H 12/03/17 13:49 Creatinine 0.59 mg/dL (0.60-1.20) L 12/03/17 04:30 Glucose 253 mg/dL (70-105) H 12/03/17 04:30 POC Glucose 219 mg/dL (70-99) H 12/02/17 20:47 Hemoglobin A1c 8.5 % (-5.6) H 12/01/17 01:25 Iron 14 mcg/dL (50-170) L 11/30/17 16:57 % Saturation 3 % (15-50) L 11/30/17 16:57 Transferrin 393 mg/dL (203-362) H 11/30/17 16:57 Ferritin 8 ng/mL (10-120) L 12/02/17 06:28 AST 9 Units/L (13-39) L 12/01/17 01:25 Triglycerides 398 mg/dL (< 150) H 12/01/17 01:25 VLDL Cholesterol, Calc 80 mg/dL (< 31) H 12/01/17 01:25 HDL Cholesterol 18 mg/dL (40-59) L 12/01/17 01:25 Cholesterol/HDL Ratio 7.2 (0-4.9) H 12/01/17 01:25 Amylase 14 Units/L (29-103) L 12/01/17 05:57 Ur Specific [place] 1.030 (1.010-1.025) H 11/30/17 20:00 - Clinical Findings Intake & Output: Intake & Output 12/03/17 12/03/17 12/03/17 07:59 15:59 23:59 Intake Total 720 / 720 Output Total 300 / 300 Balance -300 / -300 720 / 720 Weight 94.3 kg - Attending Attestation I examined this patient and my medical decision-making was reviewed with the Resident Physician. I agree with the documented findings, disposition and treatment plan as described except to the extent set forth below. Patient seen and examined. Labs, radiology, chart personally reviewed. Agree with resident's history and physical, assessment, plan with following comments: [facility] CONSULTANT: Patient follows commands, Pulmonary: Acceptable oxygenation and ventilation. Patient with acute compensated respiratory hypercapnic failure and suspected with taper ventilation and also possible diastolic congestive heart failure. Patient has been taking care of by the health care liaison outside of [place] and I discussed with the mother that we will be happy to see her as outpatient. We will schedule a sleep study with titration since she is being more hypoxic and she does not use oxygen with the BiPAP. Clinically weight loss would be important. Thank you for the consultation.
[2017-12-03] MEDS ORDERED: Albuterol 2.5 MG/3 ML NEBULIZER IH PRN (12:46)
[2017-12-03 13:54] LABS: ABG Base Excess 1 mEq/L (-2 to 3); ABG HCO3 27 mEq/L (21-27); ABG Oxygen Saturation 98 % (95-98); ABG PCO2 48 mmHg (35-45); ABG PH 7.36 pH Units (7.32-7.45); ABG PO2 103 mmHg (85-104); ABG TCO2 29 mEq/L (20-26)
--- NOTE | 2017-12-03 17:50 | Electrocardiograph Report ---
[place] [id number] Test Date: 2017-11-30 Pat Name: Tiffani Galicia Department: [id number] Room: 2A Gender: F Automatic Bandsaw Tender: PALLAVI : 1975 Requested By: Gamaliel Tucker Order Number: [id number] Reading MD: Breana Katz Measurements Intervals [place] Rate: 92 P: 26 MI: 149 QRS: 31 QRSD: 90 T: 17 QT: 355 QTc: 404 Interpretive Statements SINUS RHYTHM Electronically Signed On 12-03-2017 17:49:11 EDT by Breana Katz
[2017-12-03] MEDS ORDERED: Insulin LISPRO 300 UNITS/3 ML VIAL SQ SCH (21:00)
[2017-12-03] MEDS ORDERED: Clobazam [Onfi] 10 MG PO SCH (21:00)
[2017-12-03] MEDS ORDERED: Insulin DETEMIR 100 UNIT/ML X5UNITS SQ SCH (21:00)
[2017-12-03] MEDS ORDERED: Budesonide/Formoterol 160/4.5 MDI IH SCH (22:00)
[2017-12-04] MEDS ORDERED: Insulin DETEMIR 100 UNIT/ML X5UNITS SQ SCH (07:22)
[2017-12-04] MEDS: Insulin LISPRO 300 UNITS/3 ML VIAL SQ SCH ×2 (08:36→11:56)
[2017-12-04] MEDS: Sennosides 8.6 MG TABLET PO SCH (08:38)
[2017-12-04] MEDS: Aspirin Enteric Coated 81 MG Tablet PO SCH (08:38)
[2017-12-04] MEDS: Loratadine 10 MG TABLET PO SCH (08:39)
[2017-12-04] MEDS: Folic Acid 1 MG TABLET PO SCH (08:39)
[2017-12-04] MEDS: Cholecalciferol (D-3) 1,000 UNIT TABLET PO SCH (08:39)
[2017-12-04] MEDS: lamoTRIgine 100 MG TABLET PO SCH ×3 (08:40→14:33)
[2017-12-04] MEDS: PERAMPANEL 2 MG PO SCH (08:40)
[2017-12-04] MEDS: Topiramate 100 MG TABLET PO SCH ×2 (08:40→14:32)
[2017-12-04] MEDS: RUFINAMIDE 200 MG PO SCH (08:41)
[2017-12-04] MEDS: Clobazam [Onfi] 10 MG PO SCH ×2 (08:42→14:34)
[2017-12-04] MEDS ORDERED: levoFLOXacin 750 MG TABLET PO SCH (09:00)
--- NOTE | 2017-12-04 10:10 | Pulmonology Progress Note ---
<HusamNevaElkin C - Last Filed: 12/04/17 10:05> Date of Encounter: 12/04/17 Time of Encounter: 10:05 Assessment and Plan (1) Acute on chronic respiratory failure with hypoxemia Current Visit: Yes Status: Acute Blood gas yesterday revealed metabolically compensated hypercapnic respiratory failure, pH in normal range Primary team is still investigating diastolic heart failure component which could be contributing to her respiratory failure Patient sees a paper machine tender but was told she could follow with [facility] pulmonology if she chooses. Recommend outpatient sleep study and BiPAP titration as well as evaluation for home oxygen requirement Patient and mother educated on obesity hypoventilation syndrome and benefit of weight loss. Recommending continued BiPAP use at night as well as supplemental oxygen titrated to oxygen saturation > 88% (2) Obstructive sleep apnea Current Visit: Yes Status: Acute Plan for outpatient sleep study and BiPAP titration (3) Obesity hypoventilation syndrome Current Visit: Yes Status: Acute Patient and mother educated on importance of weight loss and posture for orthopnea Family may benefit from education about proper diet for patient (4) Asthma Current Visit: Yes Status: Chronic Recommended Symbicort for symptomatic control of mild to moderate persistent asthma Patients mother refused, states she used to take Symbicort and "lost her vision " for a short time Patient and mother were told of benefits of medication and risks of not following recommendation Mother states she will still continue patients albuterol inhaler and nebulizer for symptom control Qualifiers: Asthma severity: mild Asthma persistence: persistent Asthma complication type: uncomplicated Qualified Code(s): J45.30 - Mild persistent asthma, uncomplicated (5) Diastolic CHF Current Visit: Yes Status: Acute Mild component of diastolic heart failure found on echocardiogram This could be contributing to respiratory failure Primary team managing Qualifiers: Heart failure chronicity: unspecified Qualified Code(s): I50.30 - Unspecified diastolic (congestive) heart failure (6) Anemia, iron deficiency Current Visit: Yes Status: Acute Patient is refusing iron supplementation for anemia related to menstruation Managed by primary team Qualifiers: Iron deficiency anemia type: chronic blood loss Qualified Code(s): D50.0 - Iron deficiency anemia secondary to blood loss (chronic) (7) History of seizures Current Visit: Yes Status: Chronic Patient controlled on medications Risk for aspiration Vitals, labs, clinical condition not indicative of infection Cultures still pending (8) DM type 2 (diabetes mellitus, type 2) Current Visit: Yes Status: Chronic Patient on sliding scale and basal insulin Managed by primary team Qualifiers: Diabetes mellitus assisted insulin use: without assisted use Diabetes mellitus complication status: without complication Qualified Code(s): E11.9 - Type 2 diabetes mellitus without complications Subjective Principal diagnosis: acute compensated hypercapnic respiratory failure Interval history: Patient seen and examined this morning I discussed with the patient and her mother who is the main reservoir caretaker that the patient's symptoms are likely multifactorial, and that her respiratory issues can likely be managed on an outpatient basis. They understood and agreed. The patient denies any shortness of breath or chest pain this morning. She does complain of RUQ abdominal pain that is chronic in nature and onsets prandially. This sounds gallbladder in nature and may warrant further work up. Objective PUL Vital signs: Last Vital Signs Temp 97.7 F 12/04/17 08:35 Pulse 86 12/04/17 08:35 Resp 20 12/04/17 08:35 BP 122/80 12/04/17 08:35 Pulse Ox 93 12/04/17 08:35 General appearance: no acute distress Eyes: nonicteric ENT: oropharynx moist Neck: supple Effort: normal Auscultation: bilateral: other (coarse lung sounds diffusely) Cardiovascular: regular rate and rhythm Gastrointestinal: normoactive bowel sounds, tender, non-distended Integumentary: normal Extremities: no cyanosis, no edema Musculoskeletal: no deformities non-focal exam mood appropriate, affect normal Results - Laboratory Findings CBC and BMP: 12/03/17 04:30 12/03/17 04:30 ABG ABG pH 7.36 pH Units (7.32-7.45) 12/03/17 13:49 ABG pCO2 48 mmHg (35-45) H 12/03/17 13:49 ABG pO2 103 mmHg (85-104) 12/03/17 13:49 ABG O2 Saturation 98 % (95-98) 12/03/17 13:49 PT/INR, D-dimer PT 11.1 Seconds (9.4-12.1) 12/01/17 01:25 Abnormal lab findings: Abnormal lab results Hgb 8.3 g/dL (11.5-15.4) L 12/03/17 04:30 Hct 30.3 % (35.3-44.9) L 12/03/17 04:30 MCV 74.8 fL (83.0-100.0) L 12/03/17 04:30 MCH 20.5 pg (28.0-33.3) L 12/03/17 04:30 MCHC 27.4 g/dL (31.6-35.5) L 12/03/17 04:30 RDW 20.4 % (11.5-14.5) H 12/03/17 04:30 MPV 8.7 fL (9.4-12.4) L 12/03/17 04:30 Nucleated RBCs/100 WBC 0.2 /100 WBC (0) H 12/03/17 04:30 Large Platelets Present (Not Present) A 12/01/17 01:25 Polychromasia 1+ (Not Present) A 12/03/17 04:30 Hypochromasia Present (Not Present) A 12/03/17 04:30 Anisocytosis 2+ (Not Present) A 12/02/17 06:28 Microcytosis Present (Not Present) A 12/02/17 06:28 Macrocytosis Present (Not Present) A 12/01/17 01:25 Tear Drop Cells 1+ (Not Present) A 12/01/17 01:25 Stomatocytes 1+ (Not Present) A 12/03/17 04:30 ABG pCO2 48 mmHg (35-45) H 12/03/17 13:49 ABG Total CO2 29 mEq/L (20-26) H 12/03/17 13:49 Creatinine 0.59 mg/dL (0.60-1.20) L 12/03/17 04:30 Glucose 253 mg/dL (70-105) H 12/03/17 04:30 POC Glucose 266 mg/dL (70-99) H 12/03/17 15:41 Hemoglobin A1c 8.5 % (-5.6) H 12/01/17 01:25 Iron 14 mcg/dL (50-170) L 11/30/17 16:57 % Saturation 3 % (15-50) L 11/30/17 16:57 Transferrin 393 mg/dL (203-362) H 11/30/17 16:57 Ferritin 8 ng/mL (10-120) L 12/02/17 06:28 AST 9 Units/L (13-39) L 12/01/17 01:25 Triglycerides 398 mg/dL (< 150) H 12/01/17 01:25 VLDL Cholesterol, Calc 80 mg/dL (< 31) H 12/01/17 01:25 HDL Cholesterol 18 mg/dL (40-59) L 12/01/17 01:25 Cholesterol/HDL Ratio 7.2 (0-4.9) H 12/01/17 01:25 Amylase 14 Units/L (29-103) L 12/01/17 05:57 Ur Specific [place] 1.030 (1.010-1.025) H 11/30/17 20:00 - Clinical Findings Intake & Output: Intake & Output 12/03/17 12/04/17 12/04/17 23:59 07:59 15:59 Weight 93.7 kg - VTE Documentation of Mechanical Device: Intermittent pneumatic compression device Consult Discharge Plan - Plan Referrals: Merlyn Pendleton MD [Primary Care Provider] - 12/13/17 10:00 am (Please follow up as schedule...) Cindy Dsouza MD [Partnered Physician] - 12/21/17 8:45 am (Please follow up as schedule) <Cindy Dsouza - Last Filed: 12/04/17 13:41> Date of Encounter: 12/04/17 Objective PUL Vital signs: Last Vital Signs Temp 98.7 F 12/04/17 11:58 Pulse 87 12/04/17 11:58 Resp 20 12/04/17 11:58 BP 107/72 12/04/17 11:58 Pulse Ox 93 12/04/17 11:58 Results - Laboratory Findings CBC and BMP: 12/03/17 04:30 12/03/17 04:30 ABG ABG pH 7.36 pH Units (7.32-7.45) 12/03/17 13:49 ABG pCO2 48 mmHg (35-45) H 12/03/17 13:49 ABG pO2 103 mmHg (85-104) 12/03/17 13:49 ABG O2 Saturation 98 % (95-98) 12/03/17 13:49 PT/INR, D-dimer PT 11.1 Seconds (9.4-12.1) 12/01/17 01:25 Abnormal lab findings: Abnormal lab results Hgb 8.3 g/dL (11.5-15.4) L 12/03/17 04:30 Hct 30.3 % (35.3-44.9) L 12/03/17 04:30 MCV 74.8 fL (83.0-100.0) L 12/03/17 04:30 MCH 20.5 pg (28.0-33.3) L 12/03/17 04:30 MCHC 27.4 g/dL (31.6-35.5) L 12/03/17 04:30 RDW 20.4 % (11.5-14.5) H 12/03/17 04:30 MPV 8.7 fL (9.4-12.4) L 12/03/17 04:30 Nucleated RBCs/100 WBC 0.2 /100 WBC (0) H 12/03/17 04:30 Large Platelets Present (Not Present) A 12/01/17 01:25 Polychromasia 1+ (Not Present) A 12/03/17 04:30 Hypochromasia Present (Not Present) A 12/03/17 04:30 Anisocytosis 2+ (Not Present) A 12/02/17 06:28 Microcytosis Present (Not Present) A 12/02/17 06:28 Macrocytosis Present (Not Present) A 12/01/17 01:25 Tear Drop Cells 1+ (Not Present) A 12/01/17 01:25 Stomatocytes 1+ (Not Present) A 12/03/17 04:30 ABG pCO2 48 mmHg (35-45) H 12/03/17 13:49 ABG Total CO2 29 mEq/L (20-26) H 12/03/17 13:49 Creatinine 0.59 mg/dL (0.60-1.20) L 12/03/17 04:30 Glucose 253 mg/dL (70-105) H 12/03/17 04:30 POC Glucose 266 mg/dL (70-99) H 12/03/17 15:41 Hemoglobin A1c 8.5 % (-5.6) H 12/01/17 01:25 Iron 14 mcg/dL (50-170) L 11/30/17 16:57 % Saturation 3 % (15-50) L 11/30/17 16:57 Transferrin 393 mg/dL (203-362) H 11/30/17 16:57 Ferritin 8 ng/mL (10-120) L 12/02/17 06:28 AST 9 Units/L (13-39) L 12/01/17 01:25 Triglycerides 398 mg/dL (< 150) H 12/01/17 01:25 VLDL Cholesterol, Calc 80 mg/dL (< 31) H 12/01/17 01:25 HDL Cholesterol 18 mg/dL (40-59) L 12/01/17 01:25 Cholesterol/HDL Ratio 7.2 (0-4.9) H 12/01/17 01:25 Amylase 14 Units/L (29-103) L 12/01/17 05:57 Ur Specific [place] 1.030 (1.010-1.025) H 11/30/17 20:00 - Clinical Findings Intake & Output: Intake & Output 12/03/17 12/04/17 12/04/17 23:59 07:59 15:59 Weight 93.7 kg - Attending Attestation I examined this patient and my medical decision-making was reviewed with the Resident Physician. I agree with the documented findings, disposition and treatment plan as described except to the extent set forth below. Patient seen and examined. Labs, radiology, chart personally reviewed. Agree with resident's history and physical, assessment, plan with following comments: DRAMA TEACHER: Patient follows commands, Pulmonary: Acceptable oxygenation and ventilation and as explained yesterday patient to follow-up as outpatient. Cardiovascular: stable
--- NOTE | 2017-12-04 11:46 | Neurology Progress Note ---
Date of Encounter: 12/04/17 Time of Encounter: 07:20 Assessment and Plan (1) Hypoxia Current Visit: Yes Status: Acute (2) BRANDY on CPAP Current Visit: Yes Status: Chronic (3) Refractory idiopathic generalized epilepsy Current Visit: Yes Status: Acute This patient who has an history of mild cognitive impairment with the refractory idiopathic generalized epilepsy has been on multiple seizure medications and continued to have these breakthrough seizures. Currently she did have a seizure earlier which is likely could be due to hypoxemia and at the same time it could be due to underlying infection or metabolic disturbance. Currently she seems to be stable. At the moment I would not recommend taking any changes in her seizure medication Currently she is on Topamax, lamotrigine, ONIFI, Banzel, FYCOMPA. continue on same meds, f/u with her neurologist in [place]. HIGH RISK FOR BREAKTHRU SEIZURES Discussed with the family in detail agrees with the plan Subjective Principal diagnosis: acute compensated hypercapnic respiratory failure Interval history: neurologically stable no further seizures but high risk of seizures, as she has quite refractory epilepsy Objective - Constitutional Vitals: Temp Pulse Resp BP Pulse Ox 97.7 F 86 20 122/80 93 12/04/17 08:35 12/04/17 08:35 12/04/17 08:35 12/04/17 08:35 12/04/17 08:35 - Neurological Exam Sensorimotor examination: Present: intact Motor Examination: Present: grossly full strength in all extremities Reflex and gait examination: intact Mental Status Examination: Present: awake, alert, oriented to person, oriented to place, oriented to time, follows commands appropriately, answers questions appropriately, follows simple commands, localizes noxious stimulation, cognitive impairment Cranial nerve examination: Present: PERRL, EOMI, visual aparicio intact, no facial asymmetry is present Cerebellar examination: Present: no dysmetria - VTE Documentation of Mechanical Device: Intermittent pneumatic compression device Results - Laboratory Findings CBC and BMP: 12/03/17 04:30 12/03/17 04:30 Abnormal lab findings: Abnormal lab results Hgb 8.3 g/dL (11.5-15.4) L 12/03/17 04:30 Hct 30.3 % (35.3-44.9) L 12/03/17 04:30 MCV 74.8 fL (83.0-100.0) L 12/03/17 04:30 MCH 20.5 pg (28.0-33.3) L 12/03/17 04:30 MCHC 27.4 g/dL (31.6-35.5) L 12/03/17 04:30 RDW 20.4 % (11.5-14.5) H 12/03/17 04:30 MPV 8.7 fL (9.4-12.4) L 12/03/17 04:30 Nucleated RBCs/100 WBC 0.2 /100 WBC (0) H 12/03/17 04:30 Large Platelets Present (Not Present) A 12/01/17 01:25 Polychromasia 1+ (Not Present) A 12/03/17 04:30 Hypochromasia Present (Not Present) A 12/03/17 04:30 Anisocytosis 2+ (Not Present) A 12/02/17 06:28 Microcytosis Present (Not Present) A 12/02/17 06:28 Macrocytosis Present (Not Present) A 12/01/17 01:25 Tear Drop Cells 1+ (Not Present) A 12/01/17 01:25 Stomatocytes 1+ (Not Present) A 12/03/17 04:30 ABG pCO2 48 mmHg (35-45) H 12/03/17 13:49 ABG Total CO2 29 mEq/L (20-26) H 12/03/17 13:49 Creatinine 0.59 mg/dL (0.60-1.20) L 12/03/17 04:30 Glucose 253 mg/dL (70-105) H 12/03/17 04:30 POC Glucose 266 mg/dL (70-99) H 12/03/17 15:41 Hemoglobin A1c 8.5 % (-5.6) H 12/01/17 01:25 Iron 14 mcg/dL (50-170) L 11/30/17 16:57 % Saturation 3 % (15-50) L 11/30/17 16:57 Transferrin 393 mg/dL (203-362) H 11/30/17 16:57 Ferritin 8 ng/mL (10-120) L 12/02/17 06:28 AST 9 Units/L (13-39) L 12/01/17 01:25 Triglycerides 398 mg/dL (< 150) H 12/01/17 01:25 VLDL Cholesterol, Calc 80 mg/dL (< 31) H 12/01/17 01:25 HDL Cholesterol 18 mg/dL (40-59) L 12/01/17 01:25 Cholesterol/HDL Ratio 7.2 (0-4.9) H 12/01/17 01:25 Amylase 14 Units/L (29-103) L 12/01/17 05:57 Ur Specific [place] 1.030 (1.010-1.025) H 11/30/17 20:00 Consult Discharge Plan - Plan Referrals: Merlyn Pendleton MD [Primary Care Provider] - 12/13/17 10:00 am (Please follow up as schedule...) Cindy Dsouza MD [Partnered Physician] - 12/21/17 8:45 am (Please follow up as schedule)
[2017-12-04 12:02] VITALS: BP 107/72
--- NOTE | 2017-12-04 14:27 | Discharge Summary ---
- NOTES TO OUTPATIENT PROVIDER Notes to Outpatient Provider: Follow-up with PCP in 2-3 days-follow final blood culture report, may benefit from weight loss program. Keep appointment with [facility] neurology clinic. Follow-up with pulmonologists on OPD basis in 1-2 weeks- outpatient sleep study and BiPAP titration Orders not resulted at time of discharge: Pending orders 12/05/17 04:00 BMP [Basic Metabolic Panel] AM 0400 Complete Blood Count [HEME] AM 0400 Date of Encounter: 12/04/17 Time of Encounter: 14:49 - Discharge Diagnosis (1) Anemia, iron deficiency Priority: Secondary Status: Acute Assessment and Plan: Iron deficiency anemia. No acute blood loss with the stool occult negative. Chronic history of iron deficiency and has multiple iron infusion under the wearing apparel folder guidance in the past. I has study was ordered with low serum iron and ferritin therefore IV iron infusion is started and she received one dose but eventually IV went bad and family did not want to restart but okay to follow with PCP and wearing apparel folder to consider further management. Patient also have occasional vagina bleeding and following PCP and RIBBON CUTTER. Continue oral iron supplementation. Qualifiers: Iron deficiency anemia type: chronic blood loss Qualified Code(s): D50.0 - Iron deficiency anemia secondary to blood loss (chronic) (2) Asthma Priority: Secondary Status: Chronic Assessment and Plan: Not in acute exacerbation he did continue home medicine. Dispensary Attendant was consulted who recommended Symbicort for symptomatic control of mild to moderate persistent asthma. Follow-up pulmonologists on OPD basis Qualifiers: Asthma severity: mild Asthma persistence: persistent Asthma complication type: uncomplicated Qualified Code(s): J45.30 - Mild persistent asthma, uncomplicated (3) History of seizures Priority: Secondary Status: Chronic Assessment and Plan: Chronic and has been under care of neurologist at [facility]. During this hospital stay neurologist was consulted who recommended to continue home was seen in OB to discharge patient home with follow-up at [facility] clinic. Educated mother about Seizure, aspiration and fall precaution. (4) DM type 2 (diabetes mellitus, type 2) Priority: Secondary Status: Chronic Assessment and Plan: Hemoglobin A1c 8.5.high blood glucose level therefore titrated level #15 unit daily at bedtime. Further diabetes management as per PCP Qualifiers: Diabetes mellitus [facility] insulin use: without [facility] use Diabetes mellitus complication status: without complication Qualified Code(s): E11.9 - Type 2 diabetes mellitus without complications (5) Diastolic CHF Priority: Secondary Status: Acute Assessment and Plan: Newly diagnosed on echo-preserved LV function EF 60-65%, borderline pulmonary hypertension, indeterminate diastolic dysfunction. Patient takes Lasix intermittently on OPD basis as prescribed by PCP. Normal BNP. Does not appear in exacerbation. Further management as per PCP or cardiology on OPD basis. Qualifiers: Heart failure chronicity: unspecified Qualified Code(s): I50.30 - Unspecified diastolic (congestive) heart failure (6) Acute on chronic respiratory failure with hypoxemia Priority: Primary Status: Acute Assessment and Plan: Blood gas revealed metabolically compensated hypercapnic respiratory failure. Multifactorial due to underlying asthma, anemia, BRANDY, obesity hypoventilation syndrome. Is stable and back to baseline now. (7) Obstructive sleep apnea Priority: Secondary Status: Acute Assessment and Plan: Plan for outpatient sleep study and BiPAP titration. Follow crosstie inspector on OPD basis (8) Obesity hypoventilation syndrome Priority: Secondary Status: Acute Assessment and Plan: May get benefited with weight loss program advised to discuss with PCP (9) Elevated lactic acid level Priority: Primary Status: Acute Assessment and Plan: Possible sepsis but no clear etiology. High possibility for aspiration pneumonia based on recent seizure episode. Levaquin was restarted. Patient continued to improve clinically. Levaquin 750 mg daily for total 5 days. She already completed 4 days in the hospital. Hospital course: Ms. Galicia is a 42 year old female patient got admitted for further management of acute on chronic respiratory failure. During his stay lactic acid was also found elevated and patient got treated for questionable pneumonia with Levaquin. Home BiPAP resume was restarted. Dispensary Attendant was consulted for BiPAP management and hypoxic evaluation and he advise for outpatient BiPAP titration, sleep study and home oxygen evaluation that can be done on OPD basis and okay to discharge patient home . neurologist was consulted consulted for seizure management and he advised to continue home regimen okay to discharge from neuro standpoint with follow-up [facility] clinic. Patient has low iron therefore iron infusion was restarted but got only 1 dose. Please see details in discharge section of discharge summary. At the time of discharge patient is back to her baseline, tolerating oral diet. It was advise to family that patient will get benefited with BiPAP during daytime napping as well along with continuation of night BiPAP. marble worker was consulted for discharge plan. Patient will be sent on home health care that she already has established for physiotherapy and nursing. Discharge discussed with: patient - Time Spent with Patient Total time spent providing and/or coordinating discharge services: - Discharge Medications Home Medications: Aspirin Enteric Coated [Aspirin EC] 81 mg PO DAILY 11/30/17 [History] Buspirone HCl [Buspar] 15 mg PO TID PRN 11/30/17 [History] Cetirizine HCl [Cetirizine HCl] 10 mg PO DAILY 11/30/17 [History] Cholecalciferol (Vitamin D3) [Vitamin D3] 2,000 unit PO DAILY 11/30/17 [History] Clobazam [Onfi] 20 mg PO BID 11/30/17 [History] Docusate [Colace] 100 mg PO BID 11/30/17 [History] Dulaglutide [Trulicity] 0.75 mg SQ QWEEK 11/30/17 [History] Ferrous Sulfate [Ferrous Sulfate] 325 mg PO BID 11/30/17 [History] Folic Acid [Folic Acid] 1 mg PO DAILY 11/30/17 [History] Ibuprofen [Ibuprofen] 800 mg PO Q8H PRN 11/30/17 [History] Levothyroxine Sodium 88 mcg PO DAILY 11/30/17 [History] Metformin HCl [Fortamet] 1,000 mg PO BID 11/30/17 [History] Nateglinide [Starlix] 120 mg PO TIDWM 11/30/17 [History] Nitrofurantoin [Macrodantin] 50 mg PO DAILY 11/30/17 [History] Omeprazole [PriLOSEC] 40 mg PO BID 11/30/17 [History] Perampanel [Fycompa] 4 mg PO BID 11/30/17 [History] Potassium Chloride 20 meq PO BID 11/30/17 [History] Rufinamide [Banzel] 800 mg PO BID 11/30/17 [History] Sennosides [Senna] 8.6 mg PO BID 11/30/17 [History] Topiramate [Topamax] 300 mg PO QAM 11/30/17 [History] Topiramate [Topamax] 400 mg PO QPM 11/30/17 [History] hydroCHLOROthiazide [Hydrochlorothiazide] 12.5 mg PO DAILY PRN 11/30/17 [History ] lamoTRIgine [Lamictal] 200 mg PO QAM 11/30/17 [History] lamoTRIgine [Lamictal] 300 mg PO QPM 11/30/17 [History] Albuterol Neb [AccuNeb] 1.25 mg IH Q4H PRN 12/03/17 [History] Albuterol Sulfate [Albuterol Inhaler] 2 puff IH Q4H PRN 12/03/17 [History] levoFLOXacin [Levaquin] 750 mg PO DAILY #1 tablet 12/04/17 [Rx] Allergies/Adverse Reactions: 3 Allergy/AdvReac Type Severity Reaction Status Date / Time Sulfa (Sulfonamide AdvReac Mild Nausea Verified 11/30/17 20:03 Antibiotics) Date of admission: 12/02/17 22:18 Primary care physician: Merlyn Pendleton MD Consults: 12/03/17 10:59 Consult to Pulmonology [CONS] Routine Consulting Provider: [facility] Reason for Consult: hypoxia Call Completed: Yes - Constitutional Vitals: Temp Pulse Resp BP Pulse Ox 98.7 F 87 20 107/72 93 12/04/17 11:58 12/04/17 11:58 12/04/17 11:58 12/04/17 11:58 12/04/17 11:58 General appearance: Present: cooperative, pleasant, no acute distress, obese, answers questions appropriately Exam: General appearance: No acute distress, A&O X 3 morbid obese Head exam: Atraumatic Eye exam: EOMI, PERRLA ENT exam: Moist oral mucosa Neck nontender, supple Respiratory exam: Clear to auscultation bilaterally Cardiovascular exam: Regular rate and rhythm, no systolic murmur Abdominal exam: Soft, nontender, nondistended, positive bowel sounds Extremities exam: No calf tenderness, no pedal edema Present: Skin-no rash, warm, dry, intact Neurological exam: Grossly intact - Patient Status Disposition: Home, Self-Care Condition: Good Overall status at discharge: patient is back to baseline - Discharge Instructions Follow Up With: Merlyn Pendleton MD [Primary Care Provider] - 12/13/17 10:00 am (Please follow up as schedule...) Cindy Dsouza MD [Partnered Physician] - 12/21/17 8:45 am (Please follow up as schedule) - Diet and Activity Activity: as per physical therapy Diet: diabetic diet, low fat, low cholesterol - VTE Documentation of Mechanical Device: Intermittent pneumatic compression device
--- NOTE | 2017-12-04 14:57 | Physician Discharge Referral ---
Home Health/Hosp Referral Info Transfer to: Home Health Provider in Charge Post Discharge: PCP - Diagnosis (1) Anemia, iron deficiency Priority: Secondary Status: Acute (2) Asthma Priority: Secondary Status: Chronic (3) History of seizures Priority: Secondary Status: Chronic (4) DM type 2 (diabetes mellitus, type 2) Priority: Secondary Status: Chronic (5) Diastolic CHF Priority: Secondary Status: Acute (6) Acute on chronic respiratory failure with hypoxemia Priority: Primary Status: Acute (7) Obstructive sleep apnea Priority: Secondary Status: Acute (8) Obesity hypoventilation syndrome Priority: Secondary Status: Acute (9) Elevated lactic acid level Priority: Primary Status: Acute - Respiratory Orders Smoking Cessation: Smoking cessation has been advised. For more information, call the [place] Tobacco Quit Line at 0-254-VVOF-NOW. - Services Needed Following services are medically necessary services: Nursing, Home Health Aide, Physical Therapy - Transfer Medications Prescriptions: levoFLOXacin [Levaquin] 750 mg PO DAILY #1 tablet Home Medications: Aspirin Enteric Coated [Aspirin EC] 81 mg PO DAILY 11/30/17 [History] Buspirone HCl [Buspar] 15 mg PO TID PRN 11/30/17 [History] Cetirizine HCl 10 mg PO DAILY 11/30/17 [History] Cholecalciferol (Vitamin D3) [Vitamin D3] 2,000 unit PO DAILY 11/30/17 [History] Clobazam [Onfi] 20 mg PO BID 11/30/17 [History] Docusate [Colace] 100 mg PO BID 11/30/17 [History] Dulaglutide [Trulicity] 0.75 mg SQ QWEEK 11/30/17 [History] Ferrous Sulfate 325 mg PO BID 11/30/17 [History] Folic Acid 1 mg PO DAILY 11/30/17 [History] Ibuprofen 800 mg PO Q8H PRN 11/30/17 [History] Levothyroxine Sodium 88 mcg PO DAILY 11/30/17 [History] Metformin HCl [Fortamet] 1,000 mg PO BID 11/30/17 [History] Nateglinide [Starlix] 120 mg PO TIDWM 11/30/17 [History] Nitrofurantoin [Macrodantin] 50 mg PO DAILY 11/30/17 [History] Omeprazole [PriLOSEC] 40 mg PO BID 11/30/17 [History] Perampanel [Fycompa] 4 mg PO BID 11/30/17 [History] Potassium Chloride 20 meq PO BID 11/30/17 [History] Rufinamide [Banzel] 800 mg PO BID 11/30/17 [History] Sennosides [Senna] 8.6 mg PO BID 11/30/17 [History] Topiramate [Topamax] 300 mg PO QAM 11/30/17 [History] Topiramate [Topamax] 400 mg PO QPM 11/30/17 [History] hydroCHLOROthiazide [Hydrochlorothiazide] 12.5 mg PO DAILY PRN 11/30/17 [History ] lamoTRIgine [Lamictal] 200 mg PO QAM 11/30/17 [History] lamoTRIgine [Lamictal] 300 mg PO QPM 11/30/17 [History] Albuterol Neb [AccuNeb] 1.25 mg IH Q4H PRN 12/03/17 [History] Albuterol Sulfate [Albuterol Inhaler] 2 puff IH Q4H PRN 12/03/17 [History] levoFLOXacin [Levaquin] 750 mg PO DAILY #1 tablet 12/04/17 [Rx] Allergies/Adverse Reactions: 3 Allergy/AdvReac Type Severity Reaction Status Date / Time Sulfa (Sulfonamide AdvReac Mild Nausea Verified 11/30/17 20:03 Antibiotics) Certification: Further, I certify that my clinical findings support that this patient is homebound (i.e. absences from home require considerable and taxing effort and are for medical reasons or cheondoism services or infrequently or short duration when for other reasons) because: Homebound Reason: Patient requires assistance of a person or device to safely leave home, Leaving home requires considerable and taxing effort due to condition Attestation: My signature below is to certify that this patient is under my care and that I, or nurse practitioner, or a physician's doctor's assistant working with me, has a face-to -face encounter with this patient.
== END 2017-12-04 16:10 | disposition home or self-care (01) | DRG 189 ==
LOC: EMEROO 16:09 → 2ANU 16:09
PROVIDERS: ADMIT Family Medicine; ATTEND Family Medicine